=== PATIENT | male | born 1980 | race Caucasian/White ===

== ENCOUNTER 2019-01-13 18:48 | Inpatient (IN) | payer BC, OTHER ==
[2019-01-13 20:06] LABS: ABSOLUTE BASOPHILS # (AUTO) 0.1 10^3/uL (0.0-0.2); ABSOLUTE EOSINOPHILS # (AUTO) 0.2 10^3/uL (0.0-0.6); ABSOLUTE LYMPHOCYTES (AUTO) 2.2 10^3/uL (0.5-4.7); ABSOLUTE MONOCYTES (AUTO) 0.6 10^3/uL (0.1-1.4); ABSOLUTE NEUT (AUTO) 6.9 10^3/uL (1.7-8.2); BASOPHILS % (AUTO) 0.7 % (0-2); EOSINOPHILS % (AUTO) 1.9 % (0-6); HEMATOCRIT 44.3 % (37.9-51.0); HEMOGLOBIN 15.8 g/dL (13.5-17.0); LYMPHOCYTES % (AUTO) 22.4 % (13-45); MEAN CORPUSCULAR HGB CONC 35.7 g/dL (32.0-36.0); MEAN CORPUSCULAR VOLUME 92 fl (80-97); MONOCYTES % (AUTO) 5.9 % (3-13); PLATELET COUNT 214 10^3/uL (150-450); RED BLOOD COUNT 4.79 10^6/uL (4.35-5.55); SEGMENTED NEUTROPHILS % (AUTO) 69.1 % (42-78); TOTAL CELLS COUNTED % (AUTO) 100 %; WHITE BLOOD COUNT 9.9 10^3/uL (4.0-10.5)
[2019-01-13 20:13] LABS: INTERNATIONAL RATION (INR) 0.85; PROTHROMBIN TIME 12.1 SEC (11.4-15.4)
[2019-01-13 20:16] LABS: APPEARANCE,URINE CLEAR; BILIRUBIN,URINE NEGATIVE (NEGATIVE); COLOR,URINE YELLOW; GLUCOSE, URINE NEGATIVE (NEGATIVE); KETONES,URINE NEGATIVE (NEGATIVE); LEUKOCYTE ESTERASE,URINE NEGATIVE (NEGATIVE); NITRITE,URINE NEGATIVE (NEGATIVE); PROTEIN,URINE 30 mg/dL (NEGATIVE); URINE SPECIFIC GRAVITY 1.026
[2019-01-13 20:22] LABS: ALANINE AMINOTRANSFERASE 43 U/L (21-72); ALBUMIN 4.6 g/dL (3.5-5.0); ALKALINE PHOSPHATASE 95 U/L (38-126); ANION GAP 11 (5-19); ASPARTATE AMINO TRANSFERASE 27 U/L (17-59); BILIRUBIN,DIRECT 0.4 mg/dL (0.0-0.4); BILIRUBIN,TOTAL 1.4 mg/dL (0.2-1.3); BLOOD UREA NITROGEN 19 mg/dL (7-20); CALCIUM 9.6 mg/dL (8.4-10.2); CARBON DIOXIDE 28 mmol/L (22-30); CHLORIDE 103 mmol/L (98-107); GLUCOSE 93 mg/dL (75-110); POTASSIUM 3.9 mmol/L (3.6-5.0); SODIUM 141.7 mmol/L (137-145); TOTAL PROTEIN 7.9 g/dL (6.3-8.2)
--- NOTE | 2019-01-13 21:44 | RADIOLOGY REPORT (SQ) ---
EXAM DESCRIPTION: [facility]: CT HEAD WITHOUT IV CONTRAST CLINICAL HISTORY: 38 years Male; altered sensation left since 11am htn TECHNIQUE: Noncontrast CT head. All CT scans at this facility use dose modulation, iterative reconstruction, and/or weight based dosing when appropriate to reduce radiation dose to as low as reasonably achievable. COMPARISON: None. FINDINGS: [place] matter, white matter, ventricles, and cisterns are within normal limits. No acute hemorrhage or mass effect. Visualized portions of paranasal sinuses and mastoids are clear. Visualized portions of the calvarium are within normal limits. IMPRESSION: 1. No acute intracranial findings.
--- NOTE | 2019-01-14 00:53 | ER Document Report ---
ED General - General Chief Complaint: Numbness Stated Complaint: Paresthesias left side Time Seen by Provider: 01/13/19 19:03 Notes: Patient is a 38-year-old male with a past medical history of essential hypertension, hyperlipidemia, not currently receiving treatment for either of these pathologies who presents with roughly 12 hours of dizziness, ringing in his ears as well as feeling paresthesias or tingling sensation on his left half of his body. Patient states that he woke up with the symptoms and that they have been constant since that time. States he got back from vacation in [place] yesterday, felt fine upon his return but woke up with the symptoms. Nothing seems to improve or worsen the symptoms. He denies any history of similar symptoms in the past. He is clear denies any true sensory loss, difficulty walking, weakness, confusion or difficulty speaking. Denies current drug or alcohol use but does state that he had dietary indiscretions and increased alcohol consumption during his vacation. No head trauma. No use of anticoagulation. No previous history of CVA. TRAVEL OUTSIDE OF THE [place] IN LAST 30 DAYS: No - Related Data Allergies/Adverse Reactions: No Known Allergies Allergy (Unverified 02/26/11 14:12) Past Medical History - General Information source: Patient - Social History Smoking Status: Never Smoker Chew tobacco use (# tins/day): No Frequency of alcohol use: Social Drug Abuse: None Lives with: Family Family History: Reviewed & Not Pertinent Patient has suicidal ideation: No Patient has homicidal ideation: No - Past Medical History Cardiac Medical History: Reports: Hx Hypertension Denies: Hx Coronary Artery Disease, Hx Heart Attack Pulmonary Medical History: Denies: Hx Asthma, Hx Bronchitis, Hx COPD, Hx Pneumonia Neurological Medical History: Denies: Hx Cerebrovascular Accident, Hx Seizures Renal/ Medical History: Denies: Hx Peritoneal Dialysis GI Medical History: Musculoskeletal Medical History: Denies Hx Arthritis Psychiatric Medical History: Denies: Hx Depression Infectious Medical History: Past Surgical History: Reports: Hx Orthopedic Surgery - hernandez ACL surgery. Denies: Hx Pacemaker - Immunizations Hx Diphtheria, Pertussis, Tetanus Vaccination: Yes Review of Systems - Review of Systems Notes: Constitutional: Negative for fever. HENT: Negative for sore throat. Eyes: Negative for visual changes. Cardiovascular: Negative for chest pain. Positive for lightheadedness Respiratory: Negative for shortness of breath. Gastrointestinal: Negative for abdominal pain, vomiting or diarrhea. Genitourinary: Negative for dysuria. Musculoskeletal: Negative for back pain. Skin: Negative for rash. Neurological: Positive for left-sided paresthesias without true sensory loss, motor weakness, or headache 10 point ROS negative except as marked above and in HPI. Physical Exam - Vital signs Vitals: Temp Pulse Resp BP Pulse Ox 98.0 F 73 16 211/117 H 99 01/13/19 18:55 01/13/19 18:55 01/13/19 18:55 01/13/19 18:55 01/13/19 18:55 Interpretation: Hypertensive Notes: PHYSICAL EXAMINATION: GENERAL: Well-appearing, well-nourished and in no acute distress. HEAD: Atraumatic, normocephalic. EYES: Pupils equal round and reactive to light, extraocular movements intact, sclera anicteric, conjunctiva are normal. ENT: nares patent, oropharynx clear without exudates. Moist mucous membranes. NECK: Normal range of motion, supple without lymphadenopathy LUNGS: Breath sounds clear to auscultation bilaterally and equal. No wheezes rales or rhonchi. HEART: Regular rate and rhythm without murmurs ABDOMEN: Soft, nontender, normoactive bowel sounds. No guarding, no rebound. No masses appreciated. EXTREMITIES: Normal range of motion, no pitting or edema. No cyanosis. NEUROLOGICAL: Face symmetric. Tongue protrudes midline. Extraocular motions intact. Pupils are 2 mm and equally reactive. Normal speech, normal gait. 5 out of 5 strength in both the distal and proximal upper and lower extremities bilaterally. Sensation is grossly intact throughout. With patient's eyes closed he can feel very light touch with the edge of a glove throughout the entirety of his left upper extremity and left lower extremity as well as across the left face. Finger to nose testing normal. Pronator drift normal. PSYCH: Normal mood, normal affect. SKIN: Warm, Dry, normal turgor, no rashes or lesions noted. Course - Re-evaluation Re-evalutation: 01/14/19 00:10 Patient presents with paresthesias of the entirety of his left side of his body without any true sensory loss. The patient does not have any motor deficits. His NIH stroke scale is 0. He is otherwise well in appearance and in no distress of any kind. However his blood pressure is extremely elevated as high as into the 240 systolic. I was not notified of these blood pressure elevations did note this when I went to the bedside. After completing a complete an 8 stroke scale and find it to be 0 I do believe the patient has a likely hypertensive emergency that accounts for his paresthesias on the left side and I think is very improbable that he had a stroke given the distribution and lack of true sensory loss. He will be initiated on a nicardipine infusion. Will continue to reassess the patient at regular intervals at this time. Looking to determine whether or not his paresthesias do resolve with blood pressure correction. He has had his acuity upgraded, I have informed charge nurse. Will continue to reassess at regular intervals. 01/14/19 0100 On re-examination patient continues to have a natural scale of 0. He continues to state that his left side feels somewhat dulled but even with his eyes closed he can feel very light touch throughout the entirety of his left upper extremity, left lower extremity and left facial region. Nicardipine infusion has begun. 01/14/19 02:29 Patient's blood pressure has improved gradually currently 177/101. He states his paresthesias have not changed but he continues to be without any true neurol ogic deficit. NIH stroke scale remains 0. Again I think the likelihood of a stroke in the setting is low although it would be possible for this to be a small territory purely sensory infarct. I believe if his symptoms do persist in the morning MRI would be appropriate but I do not believe he requires transfer for neurology at this time as the likelihood of a proximal occlusion does not make any sense in this context given the absence of any other deficits. I have discussed with the hospitalist on-call Dr. Blanchard who accepted the patient to the ICU - Vital Signs Vital signs: Temp Pulse Resp BP Pulse Ox 98.0 F 77 18 179/94 H 95 01/13/19 18:55 01/14/19 03:18 01/14/19 03:18 01/14/19 03:18 01/14/19 03:18 - Laboratory Result Diagrams: 01/13/19 19:48 01/13/19 19:48 Laboratory results interpreted by me: 01/13/19 01/13/19 19:48 19:48 Total Bilirubin 1.4 H Urine Protein 30 H Urine Blood SMALL H Urine Urobilinogen 2.0 H - Diagnostic Test Radiology reviewed: Image reviewed, Reports reviewed Critical Care Note - Critical Care Note Total time excluding time spent on procedures (mins): 35 Comments: Critical care time spent obtaining history from patient or surrogate, discussions with consultants, development of treatment plan with patient or surrogate, evaluation of patient's response to treatment, examination of patient, ordering and performing treatments and interventions, ordering and rev iew of laboratory studies, re-evaluation of patient's condition, ordering and review of radiographic studies and review of old charts Discharge - Discharge Clinical Impression: Hypertensive emergency, Paresthesias, Lightheadedness Condition: Fair Disposition: ADMITTED INPATIENT Admitting Provider: Santo (Hospitalist) Unit Admitted: ICU
[2019-01-14] MEDS: NICARDIPINE HCL RTU, ISO-OS 20 MG/200 ML RTUINJ IV PRN ×3 (01:15→04:50)
[2019-01-14] MEDS ORDERED: ASPIRIN 81 MG TABLET, CHEWABLE PO ONE (02:28)
[2019-01-14] MEDS ORDERED: TEMAZEPAM 15 MG CAPSULE PO PRN (03:04)
[2019-01-14] MEDS ORDERED: MAG HYDROX/AL HYDROX/SIMETH SUSP 30 ML UDCUP PO PRN (03:04)
[2019-01-14] MEDS ORDERED: MAGNESIUM HYDROXIDE SUSP 30 ML UDCUP PO PRN (03:04)
[2019-01-14] MEDS ORDERED: ONDANSETRON HCL INJ/PF 4 MG/2 ML SDV IV PRN (03:04)
[2019-01-14] MEDS ORDERED: ACETAMINOPHEN 325 MG TABLET PO PRN (03:09)
[2019-01-14] MEDS ORDERED: NICARDIPINE HCL RTU, ISO-OS 20 MG/200 ML RTUINJ IV PRN (03:49)
[2019-01-14] MEDS: LORAZEPAM INJ 2 MG/1 ML VIAL IV PRN ×2 (04:11→23:23)
--- NOTE | 2019-01-14 05:44 | PDOC H&P ---
History of Present Illness Admission Date/PCP: 01/14/2019 Patient complains of: Tingling of the left side History of Present Illness: NICOLASA SOTO is a 38 year old male who presented to the emergency room with the sudden onset of paresthesias of the entire left side of his body. Patient [place] cates that he suddenly developed a moderate numbness and tingling sensation in his left arm earlier today and it gradually increased in intensity to moderately severe and grew to affect his entire left side including the torso, face and extremities. These paresthesias have been present since first noted last evening and have not resolved. Patient has additional symptoms of a low-grade frontal/retro-orbital headache, mild bilateral ear fullness and mild grogginess. He denies prior similar episodes and has not identified any aggravating or ameliorating factors for his paresthesias. In the emergency room he was found to be severely hypertensive with blood pressures of greater than 230/130 noted. He was subsequently placed on nicardipine infusion and his blood pressure was controlled however his paresthesias persisted. Because of his hypertensive emergency he will be admitted to the intensive care unit for further evaluation and treatment. Past Medical History Cardiac Medical History: Reports: Hypertension - Stopped taking medications about 5 years ago Denies: Coronary Artery Disease, Myocardial Infarction, Hyperlipidema Pulmonary Medical History: Denies: Asthma, Bronchitis, Chronic Obstructive Pulmonary Disease (COPD), Pneumonia EENT Medical History: Denies: Cataracts Neurological Medical History: Denies: Hemorrhagic CVA, Ischemic CVA, Seizures Endocrine Medical History: Denies: Diabetes Mellitus Type 1, Diabetes Mellitus Type 2, Hyperthyroidism, Hypothyroidism Renal/ Medical History: Denies: Chronic Kidney Disease, Nephrolithiasis Malignancy Medical History: Reports: None GI Medical History: Denies: Cirrhosis Musculoskeltal Medical History: Denies: Arthritis, Gout Skin Medical History: Denies: Eczema, Psoriasis Psychiatric Medical History: Denies: Alcohol Dependency, Depression, Substance Abuse, Tobacco Dependency Traumatic Medical History: Reports: None Hematology: Denies: Anemia, Bleeding Tendencies Infectious Medical History: Reports: None Past Surgical History Past Surgical History: Reports: Orthopedic Surgery - hernandez ACL surgery Social History Information Source: Patient Lives with: Spouse/Significant other Smoking Status: Never Smoker Frequency of Alcohol Use: Occasional Hx Recreational Drug Use: No Drugs: None Hx Prescription Drug Abuse: No - Advance Directive Resuscitation Status: Full Code Surrogate healthcare decision maker:: Spouse Family History Family History: CAD, Hypertension. denies: DM, Malignancy Parental Family History Reviewed: Yes Children Family History Reviewed: No Sibling(s) Family History Reviewed.: Yes Medication/Allergy Home Medications: Lisinopril [Prinivil 10 mg Tablet] 10 mg PO DAILY #0 tablet 06/22/14 Metoprolol Tartrate [Lopressor 25 mg Tablet] 12.5 mg PO Q12 06/22/14 Simvastatin 20 mg PO QHS 06/22/14 Allergies/Adverse Reactions: No Known Allergies Allergy (Unverified 02/26/11 14:12) Review of Systems Constitutional: PRESENT: as per HPI, headache(s). ABSENT: chills, fever(s) Eyes: ABSENT: visual disturbances, other - Eye pain Ears: PRESENT: hearing changes - Bilateral ear fullness with slightly dull/muted hearing. ABSENT: other - Ear Pain Nose, Mouth, and Throat: ABSENT: mouth pain, sore throat Cardiovascular: ABSENT: chest pain, dyspnea on exertion, edema, orthropnea, palpitations Respiratory: ABSENT: cough, dyspnea Gastrointestinal: ABSENT: abdominal pain, constipation, diarrhea, dysphagia, nausea, vomiting Genitourinary: ABSENT: dysuria, hematuria Musculoskeletal: ABSENT: back pain, joint swelling, muscle weakness Integumentary: ABSENT: pruritus, rash Neurological: PRESENT: as per HPI, numbness, paresthesias, tingling. ABSENT: confusion, convulsions, focal weakness, memory loss, syncope Psychiatric: ABSENT: anxiety, depression Endocrine: ABSENT: cold intolerance, heat intolerance Hematologic/Lymphatic: ABSENT: easy bleeding, easy bruising Physical Exam Vital Signs: Temp Pulse Resp BP Pulse Ox 98.0 F 77 14 171/96 H 94 01/13/19 18:55 01/13/19 22:00 01/14/19 02:21 01/14/19 02:21 01/14/19 02:21 Intake & Output 01/12/19 01/13/19 01/14/19 23:59 23:59 23:59 Intake Total 98 Balance 98 Weight 114.7 kg General appearance: PRESENT: no acute distress, cooperative Head exam: PRESENT: atraumatic, normocephalic Eye exam: ABSENT: conjunctival injection, nystagmus, scleral icterus Ear exam: PRESENT: normal external ear exam. ABSENT: bleeding, drainage Mouth exam: PRESENT: dry mucosa, neck supple Neck exam: ABSENT: thyromegaly, tracheal deviation Respiratory exam: PRESENT: clear to auscultation hernandez, symmetrical, unlabored Cardiovascular exam: PRESENT: RRR. ABSENT: clicks, gallop, rubs Pulses: PRESENT: normal radial pulses, normal dorsalis pedis pul Vascular exam: PRESENT: normal capillary refill. ABSENT: pallor GI/Abdominal exam: PRESENT: normal bowel sounds, soft Rectal exam: PRESENT: deferred Extremities exam: ABSENT: joint swelling, pedal edema Musculoskeletal exam: PRESENT: full ROM, normal inspection Neurological exam: PRESENT: alert, awake, oriented to person, oriented to place, oriented to time, oriented to situation, CN II-XII grossly intact. ABSENT: motor sensory deficit Psychiatric exam: PRESENT: appropriate affect, normal mood Skin exam: PRESENT: dry, intact, warm. ABSENT: jaundice, rash, urticaria Results Laboratory Results: 01/13/19 19:48 01/13/19 19:48 01/13/19 01/13/19 01/13/19 19:48 19:48 19:48 WBC 9.9 RBC 4.79 Hgb 15.8 Hct 44.3 MCV 92 MCH 33.0 MCHC 35.7 RDW 13.0 Plt Count 214 Seg Neutrophils % 69.1 Lymphocytes % 22.4 Monocytes % 5.9 Eosinophils % 1.9 Basophils % 0.7 Absolute Neutrophils 6.9 Absolute Lymphocytes 2.2 Absolute Monocytes 0.6 Absolute Eosinophils 0.2 Absolute Basophils 0.1 Sodium 141.7 Potassium 3.9 Chloride 103 Carbon Dioxide 28 Anion Gap 11 BUN 19 Creatinine 0.95 Est GFR ( Amer) > 60 Est GFR (Non-Af Amer) > 60 Glucose 93 Calcium 9.6 Total Bilirubin 1.4 H AST 27 ALT 43 Alkaline Phosphatase 95 Total Protein 7.9 Albumin 4.6 Urine Color YELLOW Urine Appearance CLEAR Urine pH 6.0 Ur Specific [place] 1.026 Urine Protein 30 H Urine Glucose (UA) NEGATIVE Urine Ketones NEGATIVE Urine Blood SMALL H Urine Nitrite NEGATIVE Ur Leukocyte Esterase NEGATIVE Urine WBC (Auto) 1 Urine RBC (Auto) 6 Impressions: Head CT 01/13/19 19:04 IMPRESSION: 1. No acute intracranial findings. Assessment and Plan - Diagnosis (1) Hypertensive emergency Is this a current diagnosis for this admission?: Yes Plan: Patient will be admitted to the ICU where he will be continued on a nicardipine drip until he can be converted to oral antihypertensive agents with no further requirement for intravenous antihypertensive therapy. He will be monitored closely throughout his therapy and his CBC metabolic profile will be monitored carefully. An echocardiogram will be obtained to evaluate cardiac effects of his long-term uncontrolled hypertension. (2) Paresthesias Is this a current diagnosis for this admission?: Yes Plan: Patient's paresthesias will be addressed with symptomatic treatment for any problems at remain after his blood pressure has been controlled. Consider a possible MRI if symptoms persist or neurologic referral. Patient will be given Ativan 1 mg IV every 4 hours as needed for anxiety or control of paresthesias symptoms. (3) Ear fullness Qualifiers: Laterality: bilateral Qualified Code(s): H93.8X3 - Other specified disorders of ear, bilateral Is this a current diagnosis for this admission?: Yes Plan: Patient's ear fullness will be addressed with symptomatic and supportive cares. If his symptoms are not resolving after his blood pressure has been well controlled and he has been able to achieve appropriate rest an ENT consultation may be in order. (4) Fatigue Qualifiers: Fatigue type: unspecified Qualified Code(s): R53.83 - Other fatigue Is this a current diagnosis for this admission?: Yes Plan: Patient's fatigue will be addressed with by him to get adequate sleep and other supportive as well as symptomatic cares. If his fatigue does not resolve after control of his blood pressure and appropriate mild sleep it would be very likely that a cardiology consultation would be in order. An echocardiogram is being obtained. - Time Time Spent with patient: 25-34 minutes Anticipated discharge: Home - Inpatient Certification Based on my medical assessment, after consideration of the patient's comorbidities, presenting symptoms, or acuity I expect that the services needed warrant INPATIENT care.: Yes I certify that my determination is in accordance with my understanding of Medicare's requirements for reasonable and necessary INPATIENT services [42 CFR 412.3e].: Yes Medical Necessity: Need Close Monitoring Due to Risk of Patient Decompensation, Need For Continuous Telemetry Monitoring, Need for Neurological Checks, Risk of Complication if Not Cared For in Hospital
[2019-01-14] MEDS: FONDAPARINUX SODIUM INJ 2.5 MG/0.5 ML DISP.SYRIN SUBCUT SCH (08:57)
--- NOTE | 2019-01-14 10:05 | PDOC PROGRESS REPORT ---
Subjective Progress Note for:: 01/14/19 Subjective:: As noted in the history and physical the patient stopped taking ant ihypertensives a proximally 5-6 years ago. He presented with marked hypertension. He was on a Cardene drip which he has tapered off of. He still has some left-sided paresthesia but full motor function. Reason For Visit: HYPERTENSIVE CRISIS Physical Exam Vital Signs: Temp Pulse Resp BP Pulse Ox 97.9 F 75 13 139/86 H 97 01/14/19 08:00 01/14/19 08:54 01/14/19 08:00 01/14/19 08:00 01/14/19 08:00 Intake & Output 01/13/19 01/14/19 01/15/19 06:59 06:59 06:59 Intake Total 510 Output Total 200 Balance 310 Weight 116.4 kg General appearance: PRESENT: no acute distress, cooperative, obese - BMI 35.8, well-developed Head exam: PRESENT: atraumatic, normocephalic Eye exam: PRESENT: conjunctiva pink. ABSENT: scleral icterus Ear exam: PRESENT: normal external ear exam Mouth exam: PRESENT: moist, tongue midline Neck exam: ABSENT: carotid bruit, JVD, lymphadenopathy Respiratory exam: PRESENT: clear to auscultation hernandez, symmetrical, unlabored. ABSENT: accessory muscle use, rales, rhonchi, tachypnea, wheezes Cardiovascular exam: PRESENT: RRR, +S1, +S2, systolic murmur - 2/6 GI/Abdominal exam: PRESENT: normal bowel sounds, soft. ABSENT: distended, tenderness Rectal exam: PRESENT: deferred Gentrourinary exam: ABSENT: indwelling catheter Extremities exam: ABSENT: pedal edema Musculoskeletal exam: PRESENT: normal inspection, other - Normal and symmetric bass [place] strength as well as plantar flexion and dorsiflexion. Normal straight leg raise. Could not elicit either patellar reflex. Neurological exam: PRESENT: alert, awake, oriented to person, oriented to place, oriented to time, oriented to situation, CN II-XII grossly intact, motor sensory deficit - The patient still has slightly altered touch sensation on the left arm and leg. It feels as if you are touching his extremity through a sleeve or layer of material. Psychiatric exam: PRESENT: appropriate affect, flat affect. ABSENT: agitated, anxious, unusual affect Focused psych exam: ABSENT: delusional, restlessness Results Laboratory Results: 01/13/19 19:48 01/13/19 19:48 01/13/19 01/13/19 01/13/19 19:48 19:48 19:48 WBC 9.9 RBC 4.79 Hgb 15.8 Hct 44.3 MCV 92 MCH 33.0 MCHC 35.7 RDW 13.0 Plt Count 214 Seg Neutrophils % 69.1 Lymphocytes % 22.4 Monocytes % 5.9 Eosinophils % 1.9 Basophils % 0.7 Absolute Neutrophils 6.9 Absolute Lymphocytes 2.2 Absolute Monocytes 0.6 Absolute Eosinophils 0.2 Absolute Basophils 0.1 Sodium 141.7 Potassium 3.9 Chloride 103 Carbon Dioxide 28 Anion Gap 11 BUN 19 Creatinine 0.95 Est GFR ( Amer) > 60 Est GFR (Non-Af Amer) > 60 Glucose 93 Calcium 9.6 Total Bilirubin 1.4 H AST 27 ALT 43 Alkaline Phosphatase 95 Total Protein 7.9 Albumin 4.6 Urine Color YELLOW Urine Appearance CLEAR Urine pH 6.0 Ur Specific [place] 1.026 Urine Protein 30 H Urine Glucose (UA) NEGATIVE Urine Ketones NEGATIVE Urine Blood SMALL H Urine Nitrite NEGATIVE Ur Leukocyte Esterase NEGATIVE Urine WBC (Auto) 1 Urine RBC (Auto) 6 Impressions: Head CT 01/13/19 19:04 IMPRESSION: 1. No acute intracranial findings. Assessment and Plan - Diagnosis (1) Hypertensive emergency Is this a current diagnosis for this admission?: Yes Plan: Patient will be admitted to the ICU where he will be continued on a nicardipine drip until he can be converted to oral antihypertensive agents with no further requirement for intravenous antihypertensive therapy. He will be monitored closely throughout his therapy and his CBC metabolic profile will be monitored carefully. An echocardiogram will be obtained to evaluate cardiac effects of hi s long-term uncontrolled hypertension. 01/14/2019-the patient is certainly feeling better this morning. He is off of the Cardene drip. He is tolerating his metoprolol succinate 200 mg twice daily and lisinopril 10 mg twice daily. We will be able to downgrade to IMCU. (2) Paresthesias Is this a current diagnosis for this admission?: Yes Plan: Patient's paresthesias will be addressed with symptomatic treatment for any problems at remain after his blood pressure has been controlled. Consider a possible MRI if symptoms persist or neurologic referral. Patient will be given Ativan 1 mg IV every 4 hours as needed for anxiety or control of paresthesias symptoms. 01/14/2019-still with some paresthesias. Because of his marked hypertension I will obtain an MRI to rule out stroke. There is no evidence of bleed on CT scan so I will start aspirin therapy daily. (3) Ear fullness Qualifiers: Laterality: bilateral Qualified Code(s): H93.8X3 - Other specified disorders of ear, bilateral Is this a current diagnosis for this admission?: Yes Plan: Patient's ear fullness will be addressed with symptomatic and supportive cares. If his symptoms are not resolving after his blood pressure has been well c ontrolled and he has been able to achieve appropriate rest an ENT consultation may be in order. 01/14/2019-he reports that his symptoms are improved. Likely due to his hypertensive emergency. Continue to monitor. Hearing is intact this morning. (4) Fatigue Qualifiers: Fatigue type: unspecified Qualified Code(s): R53.83 - Other fatigue Is this a current diagnosis for this admission?: Yes Plan: Patient's fatigue will be addressed with by him to get adequate sleep and other supportive as well as symptomatic cares. If his fatigue does not resolve after control of his blood pressure and appropriate mild sleep it would be very likely that a cardiology consultation would be in order. An echocardiogram is being obtained. 01/14/2019-improved this morning. Can better assess when he is ambulatory. (5) Obesity (BMI 30-39.9) Is this a current diagnosis for this admission?: Yes Plan: 01/14/2019-with his hypertension/cardiac risk factors the patient would benefit from weight loss and regular exercise. We will encourage low-salt low-fat diet. Lipid panel and thyroid studies are pending. - Time Time Spent with patient: 25-34 minutes Medications reviewed and adjusted accordingly: Yes Anticipated discharge: Home
[2019-01-14] MEDS: METOPROLOL SUCCINATE 50 MG TAB.SR.24H PO SCH ×2 (10:38→21:28)
[2019-01-14] MEDS: DOCUSATE SODIUM 100 MG CAPSULE PO SCH ×2 (10:38→17:39)
[2019-01-14] MEDS: LISINOPRIL 10 MG TABLET PO SCH ×2 (10:38→21:28)
[2019-01-14] MEDS: FAMOTIDINE 20 MG TABLET PO SCH ×2 (10:39→21:28)
--- NOTE | 2019-01-14 14:55 | RADIOLOGY REPORT (SQ) ---
EXAM DESCRIPTION: MRI HEAD WITHOUT COMPLETED DATE/TIME: 01/14/2019 2:31 pm REASON FOR STUDY: Paresthesias left side with hypertensive urgency COMPARISON: CT dated 01/13/2019. TECHNIQUE: Multiplanar imaging includes non-contrasted T1, T2, FLAIR, and diffusion with ADC map seq uences. Images stored on PACS. LIMITATIONS: None. FINDINGS: ANATOMY: No anomalies. Normal vascular flow voids. Pituitary fossa normal. CSF SPACES: Normal in size and contour. No hemorrhage. CEREBRUM: Sulci and gyri normal in size and contour. Normal white matter signal on FLAIR imaging. No evidence of hemorrhage, mass, or extraaxial fluid collection. POSTERIOR FOSSA: No signal alteration. No hemorrhage. No edema, masses or mass effect. Internal amy tory canals, cerebello-pontine angles, mastoids normal. DIFFUSION IMAGING: There is a focal area of restricted diffusion in the posterior right side of the b rainstem at the right middle cerebellar peduncle (image number 9 on series number 5 and series number 500). ORBITS: No masses. Globes normal. PARANASAL SINUSES: No fluid levels. Mucosa normal. OTHER: No other significant finding. IMPRESSION: FOCAL AREA OF RESTRICTED DIFFUSION IN THE POSTERIOR RIGHT BRAIN STEM AT THE RIGHT MIDDLE CEREBELLAR PEDUNCLE, CONSISTENT WITH A SMALL ACUTE INFARCT. EVIDENCE OF ACUTE STROKE: NO. COMMENT: Pertinent findings on the imaging study reported as a CRITICAL RESULT to the ICU nurse at1 4:48 on 01/14/2019. Category of Critical Result: Acute infarct. TECHNICAL DOCUMENTATION: JOB ID: [id number] [employer]- All Rights Reserved Reading location - IP/workstation name: [email or web address]
--- NOTE | 2019-01-14 15:25 | Progress Note ---
Provider Note Provider Note: Addendum: The MRI obtained today revealed a small acute infarct in the right brainstem. We will continue aggressive blood pressure control and the patient has been started on aspirin and statin therapy.
[2019-01-14] MEDS: ASPIRIN 81 MG TABLET, ENT COATED PO SCH (21:31)
[2019-01-14] MEDS ORDERED: ATORVASTATIN CALCIUM 40 MG TABLET PO SCH (22:00)
[2019-01-15 03:51] LABS: HEMATOCRIT 40.6 % (37.9-51.0); HEMOGLOBIN 14.4 g/dL (13.5-17.0); MEAN CORPUSCULAR HGB CONC 35.4 g/dL (32.0-36.0); MEAN CORPUSCULAR VOLUME 93 fl (80-97); PLATELET COUNT 191 10^3/uL (150-450); RED BLOOD COUNT 4.35 10^6/uL (4.35-5.55); RED CELL DISTRIBUTION WIDTH 13.3 % (11.5-14.0); WHITE BLOOD COUNT 10.3 10^3/uL (4.0-10.5)
[2019-01-15 04:09] LABS: ANION GAP 7 (5-19); BLOOD UREA NITROGEN 19 mg/dL (7-20); CALCIUM 9.8 mg/dL (8.4-10.2); CARBON DIOXIDE 26 mmol/L (22-30); CHLORIDE 107 mmol/L (98-107); CHOLESTEROL 232.02 mg/dL (0-200); GLUCOSE 99 mg/dL (75-110); SODIUM 139.8 mmol/L (137-145); TRIGLYCERIDES 179 mg/dL (<150)
[2019-01-15 04:20] LABS: DIRECT LDL 149 mg/dL (<100)
[2019-01-15 04:22] LABS: VLDL CHOLESTEROL 35.8 mg/dL (10-31)
[2019-01-15 04:26] LABS: FREE T3 4.12 pg/mL (2.77-5.27); FREE T4 (FREE THYROXINE) 1.17 ng/dL (0.78-2.19)
[2019-01-15 04:39] LABS: THYROID STIMULATING HORMONE 3.63 uIU/mL (0.47-4.68)
[2019-01-15] MEDS: DOCUSATE SODIUM 100 MG CAPSULE PO SCH ×3 (11:15→18:45)
[2019-01-15] MEDS: FONDAPARINUX SODIUM INJ 2.5 MG/0.5 ML DISP.SYRIN SUBCUT SCH (11:15)
[2019-01-15] MEDS: METOPROLOL SUCCINATE 50 MG TAB.SR.24H PO SCH ×2 (11:16→22:33)
[2019-01-15] MEDS: LISINOPRIL 10 MG TABLET PO SCH ×2 (11:17→22:32)
[2019-01-15] MEDS: FAMOTIDINE 20 MG TABLET PO SCH ×2 (11:18→22:32)
--- NOTE | 2019-01-15 15:12 | PDOC PROGRESS REPORT ---
Subjective Progress Note for:: 01/15/19 Subjective:: Still has residual numbness in the left arm and left leg. Left arm is almost resolved. There is a funny sensation in the left hand but he states that he has normal motor function. Left leg has some numb areas including the left inner thigh. He did work with physical therapy and tells me that he is somewhat tentative with the left leg but does not report that there was muscle failure or collapse of the leg from weakness. It might be just sensation related. Reason For Visit: HYPERTENSIVE CRISIS Physical Exam Vital Signs: Temp Pulse Resp BP Pulse Ox 98.0 F 68 12 166/105 H 96 01/15/19 08:00 01/15/19 08:00 01/15/19 08:00 01/15/19 09:45 01/15/19 09:00 Intake & Output 01/14/19 01/15/19 01/16/19 06:59 06:59 06:59 Intake Total 510 360 Output Total 200 Balance 310 360 Weight 116.4 kg 115.7 kg General appearance: PRESENT: no acute distress, cooperative, obese, well- developed Head exam: PRESENT: atraumatic, normocephalic Eye exam: PRESENT: conjunctiva pink, nystagmus - Bilateral. ABSENT: scleral icterus Ear exam: PRESENT: normal external ear exam Mouth exam: PRESENT: moist, tongue midline Teeth exam: ABSENT: poor dentation Neck exam: PRESENT: full ROM. ABSENT: carotid bruit, JVD, lymphadenopathy Respiratory exam: PRESENT: clear to auscultation hernandez, symmetrical, unlabored. ABSENT: accessory muscle use, rales, rhonchi, tachypnea, wheezes Cardiovascular exam: PRESENT: RRR, +S1, +S2, systolic murmur - 1/6 faint at left sternal border GI/Abdominal exam: PRESENT: normal bowel sounds, soft. ABSENT: distended, tenderness Rectal exam: PRESENT: deferred Gentrourinary exam: ABSENT: indwelling catheter Extremities exam: ABSENT: calf tenderness, pedal edema Musculoskeletal exam: PRESENT: ambulatory, normal inspection Neurological exam: PRESENT: alert, awake, oriented to person, oriented to place, oriented to time, oriented to situation, CN II-XII grossly intact, motor sensory deficit - Still with slightly decreased sensation left leg and arm. Novel[employer] As[employer] strength, dorsi and plantar flexion all symmetric and normal.. ABSENT: reflexes normal - Slight asymmetry with patellar reflexes. Right is 2+ left is 1+. Psychiatric exam: PRESENT: appropriate affect, normal mood. ABSENT: agitated, anxious Focused psych exam: ABSENT: delusional, restlessness Skin exam: PRESENT: dry, warm. ABSENT: rash Results Laboratory Results: 01/15/19 03:42 01/15/19 03:42 01/15/19 01/15/19 01/15/19 03:42 03:42 03:42 WBC 10.3 RBC 4.35 Hgb 14.4 Hct 40.6 MCV 93 MCH 33.0 MCHC 35.4 RDW 13.3 Plt Count 191 Sodium 139.8 Potassium 4.0 Chloride 107 Carbon Dioxide 26 Anion Gap 7 BUN 19 Creatinine 1.04 Est GFR ( Amer) > 60 Est GFR (Non-Af Amer) > 60 Glucose 99 Calcium 9.8 Magnesium 2.2 Triglycerides 179 H Cholesterol 232.02 H LDL Cholesterol Direct 149 H VLDL Cholesterol 35.8 H HDL Cholesterol 40 TSH 3.63 Free T4 1.17 Free T3 pg/mL 4.12 Impressions: Head CT 01/13/19 19:04 IMPRESSION: 1. No acute intracranial findings. Head MRI 01/14/19 00:00 IMPRESSION: FOCAL AREA OF RESTRICTED DIFFUSION IN THE POSTERIOR RIGHT BRAIN STEM AT THE RIGHT MIDDLE CEREBELLAR PEDUNCLE, CONSISTENT WITH A SMALL ACUTE INFA RCT. EVIDENCE OF ACUTE STROKE: NO. Assessment and Plan - Diagnosis (1) Hypertensive emergency Is this a current diagnosis for this admission?: Yes Plan: Patient will be admitted to the ICU where he will be continued on a nicardipine drip until he can be converted to oral antihypertensive agents with no further requirement for intravenous antihypertensive therapy. He will be monitored closely throughout his therapy and his CBC metabolic profile will be monitored carefully. An echocardiogram will be obtained to evaluate cardiac effects of his long-term uncontrolled hypertension. 01/14/2019-the patient is certainly feeling better this morning. He is off of the Cardene drip. He is tolerating his metoprolol succinate 200 mg twice daily and lisinopril 10 mg twice daily. We will be able to downgrade to IMCU. 01/15/2019-the patient's blood pressures are slightly higher today. He was informed that he did in fact have a small right brainstem infarct. We also discussed the fact that antihypertensive medications can take a week or 2 to mature to full effect. Because of his heightened hypertensive urgency at admission I would like to keep his systolic blood pressure in the 130-150 range and the diastolic blood pressure less than 100. I have added 12.5 mg of hydrochlorothiazide every 12 hours to pair with the lisinopril. If this is effective he will be able to transition to lisinopril/hydrochlorothiazide combination pill after discharge. We will continue to monitor blood pressure and adjust medications accordingly. (2) Paresthesias Is this a current diagnosis for this admission?: Yes Plan: Patient's paresthesias will be addressed with symptomatic treatment for any problems at remain after his blood pressure has been controlled. Consider a possible MRI if symptoms persist or neurologic referral. Patient will be given Ativan 1 mg IV every 4 hours as needed for anxiety or control of paresthesias symptoms. 01/14/2019-still with some paresthesias. Because of his marked hypertension I will obtain an MRI to rule out stroke. There is no evidence of bleed on CT scan so I will start aspirin therapy daily. 01/15/2019-she did work with physical therapy. He reports that he still has some dullness to touch on the leg and less so on the arm. The inner left thigh is the area most affected. He was walking with physical therapy earlier. He felt some instability. It may have been related more to sensation and proprioception than actual weakness. With good blood pressure control and on antiplatelet and statin therapy it is hoped that these issues were resolved. I reinforced that having normal motor function is somewhat more important than sensation. (3) Ear fullness Qualifiers: Laterality: bilateral Qualified Code(s): H93.8X3 - Other specified disorders of ear, bilateral Is this a current diagnosis for this admission?: Yes Plan: Patient's ear fullness will be addressed with symptomatic and supportive cares. If his symptoms are not resolving after his blood pressure has been well controlled and he has been able to achieve appropriate rest an ENT consultation may be in order. 01/14/2019-he reports that his symptoms are improved. Likely due to his hy pertensive emergency. Continue to monitor. Hearing is intact this morning. 01/15/2019-resolved (4) Fatigue Qualifiers: Fatigue type: unspecified Qualified Code(s): R53.83 - Other fatigue Is this a current diagnosis for this admission?: Yes Plan: Patient's fatigue will be addressed with by him to get adequate sleep and other supportive as well as symptomatic cares. If his fatigue does not resolve after control of his blood pressure and appropriate mild sleep it would be very likely that a cardiology consultation would be in order. An echocardiogram is being obtained. 01/14/2019-improved this morning. Can better assess when he is ambulatory. 01/15/2019-there is likely fatigue will remain after discharge. I explained to the patient that he will be referred to outpatient physical therapy. He also should start an exercise program for general health purposes. (5) Obesity (BMI 30-39.9) Is this a current diagnosis for this admission?: Yes Plan: 01/14/2019-with his hypertension/cardiac risk factors the patient would benefit from weight loss and regular exercise. We will encourage low-salt low-fat diet. Lipid panel and thyroid studies are pending. 01/15/2019-the patient was found to have an ischemic right brainstem stroke. He also has marked hypercholesterolemia with hypertriglyceridemia. There is a family history of heart disease. I explained that it is imperative for multiple reasons to engage in a regular exercise program with cardiac diet to decrease his risk factors. (6) Hypercholesterolemia with hypertriglyceridemia Is this a current diagnosis for this admission?: Yes Plan: 01/15/2019-I did provide the patient with a copy of his blood work. His total cholesterol level was 232 with an LDL of 149 and an HDL of 40. Triglycerides were 179. I informed him that I increased his atorvastatin to 80 mg daily. I explained that a good exercise regimen and low-fat diet would help as well. [place]-[employer] fish oils have been used consistently in the past but there is some controversy. 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 (7) Acute ischemic VBA brainstem stroke Qualifiers: Laterality: right Qualified Code(s): I63.211 - Cerebral infarction due to unspecified occlusion or stenosis of right vertebral artery; I63.22 - Cerebral infarction due to unspecified occlusion or stenosis of basilar artery Is this a current diagnosis for this admission?: Yes Plan: 01/15/2019-the patient had his MRI study yesterday. He was found to have a right brainstem infarct. Physical and occupational therapies were ordered. He worked with physical therapy today and did well. He had some unsteadiness going down stairs per his report. I explained that he would likely benefit from outpatient physical therapy after discharge. He should then engage in a regular exercise program. It is critical that he maintain good blood pressure control, aggressively treat his lipids and remain on antiplatelet therapy. He was in an airplane for 8 hours prior to the stroke. There was no evidence of deep venous thrombosis. This was only cause a stroke if there was a communication between the right and left sides of the heart. Not explain that it is more likely related to atherosclerosis or platelet accumulation. We will obtain a carotid ultrasound. We discussed outpatient follow-up. Because of his high risk factors he might benefit from seeing cardiology as well as reestablishing with primary care. Stroke education was provided for the patient as well. - Time Time Spent with patient: 35 or more minutes Medications reviewed and adjusted accordingly: Yes Anticipated discharge: Home
--- NOTE | 2019-01-15 19:40 | RADIOLOGY REPORT (SQ) ---
EXAM DESCRIPTION: CAROTID DOPPLER COMPLETED DATE/TIME: 01/15/2019 7:30 pm REASON FOR STUDY: stroke COMPARISON: None. TECHNIQUE: Grayscale ultrasound, Doppler velocity and spectra, and color Doppler images acquired of the extra-cranial carotid and vertebral arteries. Images stored on PACS. LIMITATIONS: None. FINDINGS: RIGHT CAROTID CCA Velocities: Within normal limits. ICA Velocities Peak systolic 0.77 m/s. End diastolic 0.39 m/s. Proximal ICA/CCA peak systolic ratio 1.20. Spectra normal. No significant plaque. LEFT CAROTID CCA Velocities: Within normal limits. ICA Velocities Peak systolic 0.65 m/s. End diastolic 0.31 m/s. Proximal ICA/CCA peak systolic ratio 0.7. Spectra normal. No significant plaque. VERTEBRAL ARTERIES: Antegrade flow. Normal waveforms. SUBCLAVIAN ARTERIES: No finding. OTHER: No other significant finding. IMPRESSION: NO HEMODYNAMICALLY SIGNIFICANT STENOSIS. COMMENT: Quality ID #[id number]: Velocity criteria are extrapolated from the diameter data as defined by t he Society of Radiologists in Ultrasound Consensus Conference. Radiology 2003: 229; 340-346. TECHNICAL DOCUMENTATION: JOB ID: [id number] [employer]- All Rights Reserved Reading location - IP/workstation name: [email or web address]
[2019-01-15] MEDS: ATORVASTATIN CALCIUM 80 MG TABLET PO SCH (22:30)
[2019-01-15] MEDS: ASPIRIN 81 MG TABLET, ENT COATED PO SCH (22:31)
[2019-01-15] MEDS: HYDROCHLOROTHIAZIDE 12.5 MG TABLET PO SCH (22:32)
[2019-01-15] MEDS: LORAZEPAM INJ 2 MG/1 ML VIAL IV PRN (23:35)
[2019-01-16 04:35] LABS: HEMATOCRIT 38.4 % (37.9-51.0); HEMOGLOBIN 13.8 g/dL (13.5-17.0); MEAN CORPUSCULAR HEMOGLOBIN 33.4 pg (27.0-33.4); MEAN CORPUSCULAR VOLUME 93 fl (80-97); PLATELET COUNT 172 10^3/uL (150-450); RED BLOOD COUNT 4.13 10^6/uL (4.35-5.55); RED CELL DISTRIBUTION WIDTH 12.8 % (11.5-14.0); WHITE BLOOD COUNT 10.9 10^3/uL (4.0-10.5)
[2019-01-16 04:57] LABS: ANION GAP 10 (5-19); BLOOD UREA NITROGEN 20 mg/dL (7-20); CALCIUM 9.6 mg/dL (8.4-10.2); CARBON DIOXIDE 26 mmol/L (22-30); CHLORIDE 103 mmol/L (98-107); GLUCOSE 87 mg/dL (75-110); POTASSIUM 4.3 mmol/L (3.6-5.0); SODIUM 139.3 mmol/L (137-145)
[2019-01-16] MEDS: METOPROLOL SUCCINATE 50 MG TAB.SR.24H PO SCH ×3 (10:45→21:41)
[2019-01-16] MEDS: DOCUSATE SODIUM 100 MG CAPSULE PO SCH ×2 (11:00→18:19)
[2019-01-16] MEDS: LISINOPRIL 10 MG TABLET PO SCH ×2 (11:01→21:41)
[2019-01-16] MEDS: AMLODIPINE BESYLATE 5 MG TABLET PO SCH (11:03)
[2019-01-16] MEDS: HYDROCHLOROTHIAZIDE 12.5 MG TABLET PO SCH ×2 (11:03→21:41)
[2019-01-16] MEDS: FAMOTIDINE 20 MG TABLET PO SCH ×2 (11:03→21:41)
--- NOTE | 2019-01-16 11:55 | PDOC PROGRESS REPORT ---
Subjective Progress Note for:: 01/16/19 Subjective:: Seen at ICU. Still with left arm numbness, but improving. Also labs leg numbness history of present by ultrasound improvement. Denies chest pain or shortness of breath or palpitations. No fever or chills. Working with physical therapy. Reason For Visit: HYPERTENSIVE CRISIS Physical Exam Vital Signs: Temp Pulse Resp BP Pulse Ox 98.5 F 60 12 176/112 H 98 01/16/19 04:00 01/16/19 08:06 01/15/19 16:00 01/16/19 09:23 01/16/19 10:00 Intake & Output 01/15/19 01/16/19 01/17/19 06:59 06:59 06:59 Intake Total 360 600 Balance 360 600 Weight 115.7 kg 116.4 kg GENERAL: Well-developed, no acute distress HEENT: Normocephalic/atraumatic NECK supple, no JVD CARDIOVASCULAR: RRR, normal S1-S2 LUNGS: CTA bilaterally ABDOMEN: Soft, NT, NL bowel sounds EXTREMITIES: No edema, clubbing, cyanosis NEUROLOGICAL: Alert, oriented x 3, resting with slight decreased sensation left mandible neck. Strength is 5/5 all 4 extremities. Results Laboratory Results: 01/16/19 03:25 01/16/19 03:25 01/16/19 01/16/19 03:25 03:25 WBC 10.9 H RBC 4.13 L Hgb 13.8 Hct 38.4 MCV 93 MCH 33.4 MCHC 36.0 RDW 12.8 Plt Count 172 Sodium 139.3 Potassium 4.3 Chloride 103 Carbon Dioxide 26 Anion Gap 10 BUN 20 Creatinine 0.92 Est GFR ( Amer) > 60 Est GFR (Non-Af Amer) > 60 Glucose 87 Calcium 9.6 Magnesium 2.1 Impressions: Head CT 01/13/19 19:04 IMPRESSION: 1. No acute intracranial findings. Head MRI 01/14/19 00:00 IMPRESSION: FOCAL AREA OF RESTRICTED DIFFUSION IN THE POSTERIOR RIGHT BRAIN STEM AT THE RIGHT MIDDLE CEREBELLAR PEDUNCLE, CONSISTENT WITH A SMALL ACUTE INFARCT. EVIDENCE OF ACUTE STROKE: NO. Carotid Doppler Study 01/15/19 00:00 IMPRESSION: NO HEMODYNAMICALLY SIGNIFICANT STENOSIS. Assessment and Plan - Diagnosis (1) Acute ischemic VBA brainstem stroke Qualifiers: Laterality: right Qualified Code(s): I63.211 - Cerebral infarction due to unspecified occlusion or stenosis of right vertebral artery; I63.22 - Cerebral infarction due to unspecified occlusion or stenosis of basilar artery Is this a current diagnosis for this admission?: Yes Plan: Patient recently flew on the plane, but no DVT. Echocardiogram pending. Continue blood pressure management, statin, aspirin. Patient to be transferred out of ICU when bed is available on the floor. Still with unsteady gait, continue PT/OT (2) Ear fullness Qualifiers: Laterality: bilateral Qualified Code(s): H93.8X3 - Other specified disorders of ear, bilateral Is this a current diagnosis for this admission?: Yes Plan: Resolved. (3) Fatigue Qualifiers: Fatigue type: unspecified Qualified Code(s): R53.83 - Other fatigue Is this a current diagnosis for this admission?: Yes Plan: Patient on metoprolol 200 mg daily--not sure why that high dose. He denies being on any medication as outpatient states he does not have a history of A. fib. Will reduce metoprolol to 100 mg daily. Besides his heart rate running high 50s-60. Will add amlodipine 5 mg p.o. daily for management of his BPs. (4) Hypertensive emergency Is this a current diagnosis for this admission?: Yes Plan: Continue lisinopril, as it is. Amlodipine added as above. Decrease metoprolol 100 mg daily (from 200mg) due to fatigue and relative bradycardia. (5) Obesity (BMI 30-39.9) Is this a current diagnosis for this admission?: Yes Plan: Weight loss counseling done. (6) Paresthesias Is this a current diagnosis for this admission?: Yes Plan: Likely due to CVA. Continue to monitor. (7) Hypertensive disorder Is this a current diagnosis for this admission?: Yes Plan: BP management.
[2019-01-16] MEDS: ATORVASTATIN CALCIUM 80 MG TABLET PO SCH (21:41)
[2019-01-16] MEDS: ASPIRIN 81 MG TABLET, ENT COATED PO SCH (21:41)
[2019-01-16] MEDS: LORAZEPAM INJ 2 MG/1 ML VIAL IV PRN (21:48)
[2019-01-17 05:41] LABS: HEMATOCRIT 41.9 % (37.9-51.0); MEAN CORPUSCULAR HEMOGLOBIN 33.1 pg (27.0-33.4); MEAN CORPUSCULAR HGB CONC 35.8 g/dL (32.0-36.0); MEAN CORPUSCULAR VOLUME 92 fl (80-97); PLATELET COUNT 182 10^3/uL (150-450); RED BLOOD COUNT 4.55 10^6/uL (4.35-5.55); RED CELL DISTRIBUTION WIDTH 12.8 % (11.5-14.0); WHITE BLOOD COUNT 12.2 10^3/uL (4.0-10.5)
[2019-01-17] MEDS: DOCUSATE SODIUM 100 MG CAPSULE PO SCH ×2 (11:43→20:18)
[2019-01-17] MEDS: HYDROCHLOROTHIAZIDE 12.5 MG TABLET PO SCH (11:43)
[2019-01-17] MEDS: METOPROLOL SUCCINATE 50 MG TAB.SR.24H PO SCH (11:44)
[2019-01-17] MEDS: LISINOPRIL 10 MG TABLET PO SCH (11:44)
[2019-01-17] MEDS: AMLODIPINE BESYLATE 5 MG TABLET PO SCH (11:45)
[2019-01-17] MEDS: FAMOTIDINE 20 MG TABLET PO SCH ×2 (11:45→21:27)
[2019-01-17] MEDS ORDERED: ENALAPRIL MALEATE 10 MG TABLET PO ONE (15:22)
[2019-01-17] MEDS: CHLORTHALIDONE 25 MG TABLET PO SCH (17:36)
--- NOTE | 2019-01-17 19:16 | RADIOLOGY REPORT (SQ) ---
EXAM DESCRIPTION: MRI HEAD WITHOUT COMPLETED DATE/TIME: 01/17/2019 6:43 pm REASON FOR STUDY: numbness/tingling L side COMPARISON: None. TECHNIQUE: Multiplanar imaging includes non-contrasted T1, T2, FLAIR, and diffusion with ADC map seq uences. Images stored on PACS. LIMITATIONS: None. FINDINGS: ANATOMY: No anomalies. Normal vascular flow voids. Pituitary fossa normal. CSF SPACES: Normal in size and contour. No hemorrhage. CEREBRUM: Sulci and gyri normal in size and contour. Normal white matter signal on FLAIR imaging. No evidence of hemorrhage, mass, or extraaxial fluid collection. POSTERIOR FOSSA: Small foci of increased T2 signal on FLAIR sequence in both cerebellar hemispheres . No hemorrhage. No edema, masses or mass effect. Internal auditory canals, cerebello-pontine angles, mastoids normal. DIFFUSION IMAGING: Positive for acute or sub-acute lacunar infarction, 5 x7 mm focus of restricted di ffusion in the right akosua. No other areas of restricted diffusion are identified. ORBITS: No masses. Globes normal. PARANASAL SINUSES: No fluid levels. Mucosa normal. OTHER: No other significant finding. IMPRESSION: Positive for acute or sub-acute lacunar infarction, 5 x7 mm focus of restricted diffusio n in the right akosua. Small foci of increased T2 signal on FLAIR sequence in both cerebellar hemispheres . EVIDENCE OF ACUTE STROKE: YES. RIGHT VERTEBROBASILAR TECHNICAL DOCUMENTATION: JOB ID: [id number] [place]-72 2010 [employer]- All Rights Reserved Reading location - IP/workstation name: [email or web address]
[2019-01-17] MEDS: ASPIRIN 81 MG TABLET, ENT COATED PO SCH (21:27)
[2019-01-17] MEDS: ATORVASTATIN CALCIUM 80 MG TABLET PO SCH (21:27)
[2019-01-17] MEDS: LORAZEPAM INJ 2 MG/1 ML VIAL IV PRN (22:43)
[2019-01-18] MEDS: FAMOTIDINE 20 MG TABLET PO SCH ×2 (09:19→21:40)
[2019-01-18] MEDS: CHLORTHALIDONE 25 MG TABLET PO SCH (09:19)
[2019-01-18] MEDS: DOCUSATE SODIUM 100 MG CAPSULE PO SCH ×2 (09:19→17:32)
[2019-01-18] MEDS ORDERED: ENALAPRIL MALEATE 5 MG TABLET PO SCH (10:00)
--- NOTE | 2019-01-18 15:09 | PDOC PROGRESS REPORT ---
Subjective Progress Note for:: 01/17/19 Subjective:: NICOLASA SOTO is a 38 year old male who presented to the emergency room with the sudden onset of paresthesias of the entire left side of his body. Patient indicates that he suddenly developed a moderate numbness and tingling sensation in his left arm earlier today and it gradually increased in intensity to moderately severe and grew to affect his entire left side including the torso, face and extremities. These paresthesias have been present since first noted la evening and have not resolved. Patient has additional symptoms of a low- grade frontal/retro-orbital headache, mild bilateral ear fullness and mild grogginess. He denies prior similar episodes and has not identified any aggravating or ameliorating factors for his paresthesias. In the emergency room he was found to be severely hypertensive with blood pressures of greater than 230/130 noted. He was subsequently placed on nicardipine infusion and his blood pressure was controlled however his paresthesias persisted. Because of his hypertensive emergency he will be admitted to the intensive care unit for further evaluation and treatment. 01/17/2019. No acute changes overnight. Patient still complaining of persistent left-sided paresthesias, otherwise denying any other focal neurological deficits. Patient ambulatory, evaluated by physical therapy, no rehab recommendation. On 01/17/2019 patient had mentioned to the primary nurse that he was noticing a change in his stitches on the left side. I was notified about it and I ordered a an stat MRI which was initially read as "acute or subacute lacunar infarction, 5 x 7 mm focus of restricted diffusion in the right akosua. Small foci of increased T2 signal on FLAIR sequence in both cerebellar hemispheres. Evidence of acute stroke: Yes. Right Vertebral basilar. " I noticed that this MRI was not compared to the previous MRI done on 01/14/2019. Dr. Finley and myself contacted with Roberto Carlos Leach who had read the MRI, and ask him if he could compare the MRI to the previous one which was done on this admission. When he compared the two MRIs he stated that there was no changes and he was going to an addendum on the report. Addendum was added to the report which should read as " compared with the prior study of 01/14/2019 there has been no interval change", when I evaluated the patient patient denied any new neurolog ical changes. He did his left-sided numbness has been persistent since admission. Reason For Visit: HYPERTENSIVE CRISIS Physical Exam Vital Signs: Temp Pulse Resp BP Pulse Ox 98.6 F 87 15 130/67 H 97 01/18/19 11:46 01/18/19 14:00 01/18/19 12:00 01/18/19 12:00 01/18/19 12:00 Intake & Output 01/17/19 01/18/19 01/19/19 06:59 06:59 06:59 Intake Total 1214 472 425 Balance 1214 472 425 Weight 116.4 kg 115.8 kg General appearance: PRESENT: no acute distress, obese, well-developed, well- nourished Head exam: PRESENT: atraumatic, normocephalic Eye exam: PRESENT: conjunctiva pink, EOMI, PERRLA. ABSENT: scleral icterus Ear exam: PRESENT: normal external ear exam Mouth exam: PRESENT: moist, tongue midline Neck exam: ABSENT: carotid bruit, JVD, lymphadenopathy, thyromegaly Respiratory exam: PRESENT: clear to auscultation hernandez. ABSENT: rales, rhonchi, wheezes Cardiovascular exam: PRESENT: RRR. ABSENT: diastolic murmur, rubs, systolic murmur Pulses: PRESENT: normal dorsalis pedis pul Vascular exam: PRESENT: normal capillary refill GI/Abdominal exam: PRESENT: normal bowel sounds, soft. ABSENT: distended, guarding, mass, organolmegaly, rebound, tenderness Rectal exam: PRESENT: deferred Extremities exam: PRESENT: full ROM. ABSENT: calf tenderness, clubbing, pedal edema Neurological exam: PRESENT: alert, awake, oriented to person, oriented to place, oriented to time, oriented to situation, CN II-XII grossly intact. ABSENT: motor sensory deficit Psychiatric exam: PRESENT: appropriate affect, normal mood. ABSENT: homicidal ideation, suicidal ideation Skin exam: PRESENT: dry, intact, warm. ABSENT: cyanosis, rash Results Laboratory Results: 01/17/19 04:37 01/16/19 03:25 Impressions: Head CT 01/13/19 19:04 IMPRESSION: 1. No acute intracranial findings. Carotid Doppler Study 01/15/19 00:00 IMPRESSION: NO HEMODYNAMICALLY SIGNIFICANT STENOSIS. Head MRI 01/17/19 00:00 IMPRESSION: Positive for acute or sub-acute lacunar infarction, 5 x7 mm focus of restricted diffusion in the right akosua. Small foci of increased T2 signal on FLAIR sequence in both cerebellar hemispheres . EVIDENCE OF ACUTE STROKE: YES. RIGHT VERTEBROBASILAR Assessment and Plan - Diagnosis (1) Hypertensive emergency Is this a current diagnosis for this admission?: Yes Plan: Improving, not optimized. SBP in 140s. Continue chlorthalidone and enalapril. Outpatient PCP follow-up. Initial blood pressure on admission 200s, which was gradually lowered allowing permissive hypertension in the first retention for the first 48 hours. (2) Acute ischemic VBA brainstem stroke Qualifiers: Laterality: right Qualified Code(s): I63.211 - Cerebral infarction due to unspecified occlusion or stenosis of right vertebral artery; I63.22 - Cerebral infarction due to unspecified occlusion or stenosis of basilar artery Is this a current diagnosis for this admission?: Yes Plan: Ischemic. In the right vertebrobasilar artery territory. Due to uncontrolled hypertension. Surgical persistent left-sided paresthesias. Negative for any other focal neurological deficits. Patient evaluated by PT/history no rehab recommended at this time. Continue high intensity statins, aspirin, optimize blood pressure. Initial blood pressure on admission 200s, which was gradually lowered allowing permissive hypertension in the first retention for the first 48 hours. 2D carotid negative for any hemodynamically significant stenosis. Pending 2D echo. Outpatient PCP and neurology follow-up. (3) Paresthesias Is this a current diagnosis for this admission?: Yes Plan: Likely due to CVA. Will start on gabapentin. Increase dosage gradually if needed. Outpatient PCP follow-up. (4) Fatigue Qualifiers: Fatigue type: unspecified Qualified Code(s): R53.83 - Other fatigue Is this a current diagnosis for this admission?: Yes Plan: Improved. Likely sequela of acute distress. (5) Obesity (BMI 30-39.9) Is this a current diagnosis for this admission?: Yes Plan: Diet and lifestyle modification. (6) Hypertension Is this a current diagnosis for this admission?: Yes Plan: As per problem #2. (7) Hyperlipemia Is this a current diagnosis for this admission?: Yes Plan: ASCVD score of 40%. Continue high intensity statins. Advised on diet modification. Follow-up with PCP for evaluation of LFTs
--- NOTE | 2019-01-18 15:46 | PDOC PROGRESS REPORT ---
Subjective Progress Note for:: 01/18/19 Subjective:: NICOLASA SOTO is a 38 year old male who presented to the emergency room with the sudden onset of paresthesias of the entire left side of his body. Patient indicates that he suddenly developed a moderate numbness and tingling sensation in his left arm earlier today and it gradually increased in intensity to moderately severe and grew to affect his entire left side including the torso, face and extremities. These paresthesias have been present since first noted la evening and have not resolved. Patient has additional symptoms of a low- grade frontal/retro-orbital headache, mild bilateral ear fullness and mild grogginess. He denies prior similar episodes and has not identified any aggravating or ameliorating factors for his paresthesias. In the emergency room he was found to be severely hypertensive with blood pressures of greater than 230/130 noted. He was subsequently placed on nicardipine infusion and his blood pressure was controlled however his paresthesias persisted. Because of his hypertensive emergency he will be admitted to the intensive care unit for further evaluation and treatment. 01/17/2019. No acute changes overnight. Patient still complaining of persistent left-sided paresthesias, otherwise denying any other focal neurological deficits. Patient ambulatory, evaluated by physical therapy, no rehab recommendation. On 01/17/2019 patient had mentioned to the primary nurse that he was noticing a change in his stitches on the left side. I was notified about it and I ordered a an stat MRI which was initially read as "acute or subacute lacunar infarction, 5 x 7 mm focus of restricted diffusion in the right akosua. Small foci of increased T2 signal on FLAIR sequence in both cerebellar hemispheres. Evidence of acute stroke: Yes. Right Vertebral basilar. " I noticed that this MRI was not compared to the previous MRI done on 01/14/2019. Dr. Finley and myself contacted with Roberto Carlos Leach who had read the MRI, and ask him if he could compare the MRI to the previous one which was done on this admission. When he compared the two MRIs he stated that there was no changes and he was going to an addendum on the report. Addendum was added to the report which should read as " compared with the prior study of 01/14/2019 there has been no interval change", when I evaluated the patient patient denied any new neurolog ical changes. He did his left-sided numbness has been persistent since admission. 01/18/2019. No acute events overnight. Unchanged persistent left-sided paresthesias. Patient was updated about the finding of his new MRI. He was counseled on importance of good BP control and regular PCP visit. Denies any new focal neurological deficits, weakness, headache, vision changes, or any balance problem. Denies any fever, chills, nausea, vomiting, diarrhea, constipation or any urinary symptoms. Reason For Visit: HYPERTENSIVE CRISIS Physical Exam Vital Signs: Temp Pulse Resp BP Pulse Ox 98.6 F 87 15 130/67 H 97 01/18/19 11:46 01/18/19 14:00 01/18/19 12:00 01/18/19 12:00 01/18/19 12:00 Intake & Output 01/17/19 01/18/19 01/19/19 06:59 06:59 06:59 Intake Total 1214 472 425 Balance 1214 472 425 Weight 116.4 kg 115.8 kg General appearance: PRESENT: no acute distress, well-developed, well-nourished Head exam: PRESENT: atraumatic, normocephalic Eye exam: PRESENT: conjunctiva pink, EOMI, PERRLA. ABSENT: scleral icterus Ear exam: PRESENT: normal external ear exam Mouth exam: PRESENT: moist, tongue midline Neck exam: ABSENT: carotid bruit, JVD, lymphadenopathy, thyromegaly Respiratory exam: PRESENT: clear to auscultation hernandez. ABSENT: rales, rhonchi, wheezes Cardiovascular exam: PRESENT: RRR. ABSENT: diastolic murmur, rubs, systolic murmur Pulses: PRESENT: normal dorsalis pedis pul Vascular exam: PRESENT: normal capillary refill GI/Abdominal exam: PRESENT: normal bowel sounds, soft. ABSENT: distended, guarding, mass, organolmegaly, rebound, tenderness Rectal exam: PRESENT: deferred Extremities exam: PRESENT: full ROM. ABSENT: calf tenderness, clubbing, pedal edema Neurological exam: PRESENT: alert, awake, oriented to person, oriented to place, oriented to time, oriented to situation, CN II-XII grossly intact. ABSENT: motor sensory deficit Psychiatric exam: PRESENT: appropriate affect, normal mood. ABSENT: homicidal ideation, suicidal ideation Skin exam: PRESENT: dry, intact, warm. ABSENT: cyanosis, rash Results Laboratory Results: 01/17/19 04:37 01/16/19 03:25 Impressions: Head CT 01/13/19 19:04 IMPRESSION: 1. No acute intracranial findings. Carotid Doppler Study 01/15/19 00:00 IMPRESSION: NO HEMODYNAMICALLY SIGNIFICANT STENOSIS. Head MRI 01/17/19 00:00 IMPRESSION: Positive for acute or sub-acute lacunar infarction, 5 x7 mm focus of restricted diffusion in the right akosua. Small foci of increased T2 signal on FLAIR sequence in both cerebellar hemispheres . EVIDENCE OF ACUTE STROKE: YES. RIGHT VERTEBROBASILAR Assessment and Plan - Diagnosis (1) Hypertensive emergency Is this a current diagnosis for this admission?: Yes Plan: Improving, not optimized. SBP in 140s. Continue chlorthalidone and enalapril. Outpatient PCP follow-up. Initial blood pressure on admission 200s, which was gradually lowered allowing permissive hypertension in the first retention for the first 48 hours. (2) Acute ischemic VBA brainstem stroke Qualifiers: Laterality: right Qualified Code(s): I63.211 - Cerebral infarction due to unspecified occlusion or stenosis of right vertebral artery; I63.22 - Cerebral infarction due to unspecified occlusion or stenosis of basilar artery Is this a current diagnosis for this admission?: Yes Plan: Ischemic. In the right vertebrobasilar artery territory. Due to uncontrolled hypertension. Surgical persistent left-sided paresthesias. Negative for any other focal neurological deficits. Patient evaluated by PT/history no rehab recommended at this time. Continue high intensity statins, aspirin, optimize blood pressure. Initial blood pressure on admission 200s, which was gradually lowered allowing permissive hypertension in the first retention for the first 48 hours. 2D carotid negative for any hemodynamically significant stenosis. Pending 2D echo. Outpatient PCP and neurology follow-up. Note: On 01/17/2019 patient had mentioned to the primary nurse that he was noticing a change in his stitches on the left side. I was notified about it and I ordered a an stat MRI which was initially read as "acute or subacute lacunar i nfarction, 5 x 7 mm focus of restricted diffusion in the right akosua. Small foci of increased T2 signal on FLAIR sequence in both cerebellar hemispheres. Evidence of acute stroke: Yes. Right Vertebral basilar. " I noticed that this MRI was not compared to the previous MRI done on 01/14/2019. Dr. Finley and myself contacted with Roberto Carlos Leach who had read the MRI, and ask him if he could compare the MRI to the previous one which was done on this admission. When he compared the two MRIs he stated that there was no changes and he was going to an addendum on the report. Addendum was added to the report which should read as " compared with the prior study of 01/14/2019 there has been no interval change", when I evaluated the patient patient denied any new neurological changes. He did his left-sided numbness has been persistent since admission. (3) Paresthesias Is this a current diagnosis for this admission?: Yes Plan: Likely due to CVA. Will start on gabapentin. Increase dosage gradually if needed. Outpatient PCP follow-up. (4) Fatigue Qualifiers: Fatigue type: unspecified Qualified Code(s): R53.83 - Other fatigue Is this a current diagnosis for this admission?: Yes Plan: Improved. Likely sequela of acute distress. (5) Obesity (BMI 30-39.9) Is this a current diagnosis for this admission?: Yes Plan: Diet and lifestyle modification. (6) Hypertension Is this a current diagnosis for this admission?: Yes Plan: As per problem #2. (7) Hyperlipemia Is this a current diagnosis for this admission?: Yes Plan: ASCVD score of 40%. Continue high intensity statins. Advised on diet modification. Follow-up with PCP for evaluation of LFTs
[2019-01-18] MEDS: GABAPENTIN 100 MG CAPSULE PO SCH ×2 (17:32→21:40)
[2019-01-18] MEDS: ATORVASTATIN CALCIUM 80 MG TABLET PO SCH (21:40)
[2019-01-18] MEDS: LORAZEPAM INJ 2 MG/1 ML VIAL IV PRN (21:40)
[2019-01-18] MEDS: ASPIRIN 81 MG TABLET, ENT COATED PO SCH (21:40)
[2019-01-19 05:26] LABS: ABSOLUTE BASOPHILS # (AUTO) 0.1 10^3/uL (0.0-0.2); ABSOLUTE EOSINOPHILS # (AUTO) 0.3 10^3/uL (0.0-0.6); ABSOLUTE LYMPHOCYTES (AUTO) 2.6 10^3/uL (0.5-4.7); ABSOLUTE NEUT (AUTO) 7.9 10^3/uL (1.7-8.2); BASOPHILS % (AUTO) 0.5 % (0-2); EOSINOPHILS % (AUTO) 2.1 % (0-6); HEMATOCRIT 43.9 % (37.9-51.0); HEMOGLOBIN 15.7 g/dL (13.5-17.0); LYMPHOCYTES % (AUTO) 22.2 % (13-45); MEAN CORPUSCULAR HEMOGLOBIN 33.2 pg (27.0-33.4); MEAN CORPUSCULAR HGB CONC 35.9 g/dL (32.0-36.0); MEAN CORPUSCULAR VOLUME 93 fl (80-97); MONOCYTES % (AUTO) 8.7 % (3-13); PLATELET COUNT 204 10^3/uL (150-450); RED BLOOD COUNT 4.74 10^6/uL (4.35-5.55); RED CELL DISTRIBUTION WIDTH 13.1 % (11.5-14.0); SEGMENTED NEUTROPHILS % (AUTO) 66.5 % (42-78); TOTAL CELLS COUNTED % (AUTO) 100 %; WHITE BLOOD COUNT 11.9 10^3/uL (4.0-10.5)
[2019-01-19] MEDS: GABAPENTIN 100 MG CAPSULE PO SCH (05:41)
[2019-01-19 05:54] LABS: ANION GAP 13 (5-19); BLOOD UREA NITROGEN 24 mg/dL (7-20); CALCIUM 10.3 mg/dL (8.4-10.2); CARBON DIOXIDE 24 mmol/L (22-30); CHLORIDE 102 mmol/L (98-107); GLUCOSE 109 mg/dL (75-110); POTASSIUM 4.4 mmol/L (3.6-5.0); SODIUM 139.1 mmol/L (137-145)
[2019-01-19 08:20] VITALS: BP 131/73
[2019-01-19] MEDS ORDERED: ENALAPRIL MALEATE 10 MG TABLET PO SCH (10:00)
--- NOTE | 2019-01-19 21:45 | XCELERA REPORT ---
[address] [address] Transthoracic Echocardiogram Report Name: NICOLASA SOTO Age: 38 yrs Gender: Male : 1980 Patient Status: Inpatient Patient Location: [address] [place] [address] Study Date: 01/18/2019 07:18 PM Height: 71 in Weight: 255 lb BSA: 2.3 m2 Procedure: A two-dimensional transthoracic echocardiogram with color flow and Doppler was performed. Study Quality: Poor. The study was technically difficult with many images being suboptimal in quality. Images were not obtained from all of the standard acoustic windows due to the limited scope of the study. Reason For Study: CVA History: CVA. Ordering Physician: KIM LEDESMA Performed By: Aliyah Rivers Interpretation Summary The left ventricle is grossly normal size. Probaly there is mild LVH.No True apical 2 chamber views obtained.Hence cannot comment on the apical anterior , the basal anterior, the basal inferior and apical inferior leonard.The mid anterior , the mid inferior and the rest of the LV leonard contract normally. . LVEF is normal and is greater than 60% in the limited views. Doppler measurements suggest impaired left ventricular relaxation, which is associated with grade I/IV or mild diastolic dysfunction Not a study to assess for LV clots or ASD,VSD , or PFO.Recommend SHELBY. The left atrial size is normal. There is a trace amount of mitral regurgitation There is no mitral valve stenosis. There is no evidence of mitral valve prolapse. There is no aortic valve stenosis No aortic regurgitation is present. There is no tricuspid stenosis. There is a trace amount of tricuspid regurgitation No significant pulmonary hypertension.RVSP is 32 mm of Hg , with RA mean of 10. There is no pulmonic valvular stenosis. There is a trace amount of pulmonic regurgitation The aortic root is not well visualized. The inferior vena cava was not visualized There is no pericardial effusion. MMode/2D Measurements & Calculations RVDd: 2.9 cm LVIDd: 4.6 cm FS: 33.6 % Ao root diam: 3.1 cm IVSd: 1.4 cm LVIDs: 3.0 cm EDV(Teich): 97.0 ml Ao root area: 7.7 cm2 LVPWd: 1.1 cm ESV(Teich): 36.4 ml LA dimension: 3.3 cm EF(Teich): 62.5 % Doppler Measurements & Calculations MV E max tamera: MV P1/2t max tamera: Ao V2 max: LV V1 max P.5 cm/sec 67.8 cm/sec 95.6 cm/sec 1.9 mmHg MV A max tamera: MV P1/2t: 40.2 msec Ao max PG: LV V1 max: 56.2 cm/sec MVA(P1/2t): 5.5 cm2 3.7 mmHg 69.2 cm/sec MV E/A: 0.72 MV dec slope: 493.4 cm/sec2 MV dec time: 0.18 sec PA V2 max: PI end-d tamera: TR max tamera: MV P1/2t-pr_phl: 104.5 cm/sec 131.7 cm/sec 231.1 cm/sec 40.2 msec PA max PG: TR max P.4 mmHg 21.4 mmHg Left Ventricle The left ventricle is grossly normal size. Probaly there is mild LVH.No True apical 2 chamber views obtained.Hence cannot comment on the apical anterior , the basal anterior, the basal inferior and apical inferior leonard.The mid anterior , the mid inferior and the rest of the LV leonard contract normally. . LVEF is normal and is greater than 60% in the limited views. Doppler measurements suggest impaired left ventricular relaxation, which is associated with grade I/IV or mild diastolic dysfunction. Not a study to assess for LV clots or ASD,VSD , or PFO.Recommend SHELBY. Right Ventricle The right ventricle is not well visualized secondary to technical limitations. Atria Right atrium not well visualized secondary to technical limitations. The left atrial size is normal. Mitral Valve There is no evidence of mitral valve prolapse. There is no mitral valve stenosis. There is a trace amount of mitral regurgitation. Aortic Valve There is no aortic valve stenosis. No aortic regurgitation is present. Tricuspid Valve There is no tricuspid stenosis. There is a trace amount of tricuspid regurgitation. No significant pulmonary hypertension.RVSP is 32 mm of Hg , with RA mean of 10. Pulmonic Valve There is no pulmonic valvular stenosis. There is a trace amount of pulmonic regurgitation. Great Vessels The aortic root is not well visualized. The inferior vena cava was not visualized. Effusions There is no pericardial effusion. : KIM LEDESMA > Carol Reese
--- NOTE | 2019-02-04 06:54 | PDOC DISCHARGE SUMMARY ---
General - Admit/Disc Date/PCP Admission Date/Primary Care Provider: 01/14/19 02:41 Discharge Date: 01/19/19 - Discharge Diagnosis (1) Hypertensive emergency Is this a current diagnosis for this admission?: Yes (2) Acute ischemic VBA brainstem stroke Is this a current diagnosis for this admission?: Yes (3) Paresthesias Is this a current diagnosis for this admission?: Yes (4) Fatigue Is this a current diagnosis for this admission?: Yes (5) Obesity (BMI 30-39.9) Is this a current diagnosis for this admission?: Yes (6) Hypertension Is this a current diagnosis for this admission?: Yes (7) Hyperlipemia Is this a current diagnosis for this admission?: Yes - Additional Information Resuscitation Status: Full Code Discharge Diet: As Tolerated, Cardiac Discharge Activity: Activity As Tolerated Prescriptions: Aspirin [Ecotrin 81 mg EC Tablet] 81 mg PO QHS 30 Days #30 tabec Atorvastatin Calcium [Lipitor 80 mg Tablet] 80 mg PO QHS 30 Days #30 tablet Chlorthalidone [Hygroton 25 mg Tablet] 25 mg PO DAILY 30 Days #30 tablet Enalapril Maleate [Vasotec 10 mg Tablet] 10 mg PO DAILY 30 Days #30 tablet Gabapentin [Neurontin 100 mg Capsule] 200 mg PO Q8 30 Days #90 capsule Home Medications: Aspirin [Ecotrin 81 mg EC Tablet] 81 mg PO QHS 30 Days #30 tabec 01/19/19 Atorvastatin Calcium [Lipitor 80 mg Tablet] 80 mg PO QHS 30 Days #30 tablet 01/19/19 Chlorthalidone [Hygroton 25 mg Tablet] 25 mg PO DAILY 30 Days #30 tablet 01/19/19 Enalapril Maleate [Vasotec 10 mg Tablet] 10 mg PO DAILY 30 Days #30 tablet 01/19/19 Gabapentin [Neurontin 100 mg Capsule] 200 mg PO Q8 30 Days #90 capsule 01/19/19 History of Present Illness History of Present Illness: NICOLASA SOTO is a 38 year old male who presented to the emergency room with the sudden onset of paresthesias of the entire left side of his body. Patient indicates that he suddenly developed a moderate numbness and tingling sensation in his left arm earlier today and it gradually increased in intensity to moderately severe and grew to affect his entire left side including the torso, face and extremities. These paresthesias have been present since first noted last evening and have not resolved. Patient has additional symptoms of a low- grade frontal/retro-orbital headache, mild bilateral ear fullness and mild grogginess. He denies prior similar episodes and has not identified any aggravating or ameliorating factors for his paresthesias. In the emergency room he was found to be severely hypertensive with blood pressures of greater than 230/130 noted. He was subsequently placed on nicardipine infusion and his blood pressure was controlled however his paresthesias persisted. Because of his hypertensive emergency he will be admitted to the intensive care unit for further evaluation and treatment. 01/17/2019. No acute changes overnight. Patient still complaining of persistent left-sided paresthesias, otherwise denying any other focal neurological deficits. Patient ambulatory, evaluated by physical therapy, no rehab recommendation. On 01/17/2019 patient had mentioned to the primary nurse that he was noticing a change in his stitches on the left side. I was notified about it and I ordered a an stat MRI which was initially read as "acute or subacute lacunar infarction, 5 x 7 mm focus of restricted diffusion in the right akosua. Small foci of increased T2 signal on FLAIR sequence in both cerebellar hemispheres. Evidence of acute stroke: Yes. Right Vertebral basilar. " I noticed that this MRI was not compared to the previous MRI done on 01/14/2019. Dr. Finley and myself contacted with Roberto Carlos Leach who had read the MRI, and ask him if he could compare the MRI to the previous one which was done on this admission. When he compared the two MRIs he stated that there was no changes and he was going to an addendum on the report. Addendum was added to the report which should read as " compared with the prior study of 01/14/2019 there has been no interval change", when I evaluated the patient patient denied any new neurological changes. He did his left-sided numbness has been persistent since admission. 01/18/2019. No acute events overnight. Unchanged persistent left-sided paresthesias. Patient was updated about the finding of his new MRI. He was counseled on importance of good BP control and regular PCP visit. Denies any new focal neurological deficits, weakness, headache, vision changes, or any balance problem. Denies any fever, chills, nausea, vomiting, diarrhea, constipation or any urinary symptoms. Hospital Course Hospital Course: (1) Hypertensive emergency Improved. SBP in 130s. Outpatient PCP follow-up with Dr. Best. Initial blood pressure on admission 200s, which was gradually lowered allowing permissive hypertension in the first retention for the first 48 hours. Discharged on aspirin 81 p.o. daily, atorvastatin 80 mg p.o. daily, chlorthalidone 25 mg p.o. daily, enalapril 10 mg p.o. daily, gabapentin 200 mg p.o. daily every 8 hours (2) Acute ischemic VBA brainstem stroke Ischemic. Nonhemorrhagic. In the right vertebrobasilar artery territory. Due to uncontrolled hypertension. Surgical persistent left-sided paresthesias. Negative for any other focal neurological deficits. Patient evaluated by PT/history no rehab recommended at this time. Continue high intensity statins, aspirin, optimize blood pressure. Initial blood pressure on admission 200s, which was gradually lowered allowing permissive hypertension in the first retention for the first 48 hours. 2D carotid negative for any hemodynamically significant stenosis. 2D echo ejection fraction more than 60%. Outpatient PCP and neurology follow-up. Note: On 01/17/2019 patient had mentioned to the primary nurse that he was noticing a change in his stitches on the left side. I was notified about it and I ordered a an stat MRI which was initially read as "acute or subacute lacunar infarction, 5 x 7 mm focus of restricted diffusion in the right akos[place]. Small foci of increased T2 signal on FLAIR sequence in both cerebellar hemispheres. Evidence of acute stroke: Yes. Right Vertebral basilar. " I noticed that this MRI was not compared to the previous MRI done on 01/14/2019. Dr. Finley and myself contacted with Roberto Carlos Leach who had read the MRI, and ask him if he could compare the MRI to the previous one which was done on this admission. When he compared the two MRIs he stated that there was no changes and he was going to an addendum on the report. Addendum was added to the report which should read as " compared with the prior study of 01/14/2019 there has been no interval change", when I evaluated the patient patient denied any new neurological changes. He did his left-sided numbness has been persistent since admission. Discharged on aspirin 81 p.o. daily, atorvastatin 80 mg p.o. daily, chlorthalidone 25 mg p.o. daily, enalapril 10 mg p.o. daily, gabapentin 200 mg p.o. daily every 8 hours (3) Paresthesias Likely due to CVA. Mild improvement on gabapentin. Discharged on gabapentin 200 mg p.o. every 8 increase dosage gradually if needed. Outpatient PCP follow- up. (4) Fatigue Improved. Likely sequela of acute distress. (5) Obesity (BMI 30-39.9) Diet and lifestyle modification. (6) Hypertension As per problem #2. Discharged on aspirin 81 p.o. daily, atorvastatin 80 mg p.o. daily, chlorthalidone 25 mg p.o. daily, enalapril 10 mg p.o. daily, gabapentin 200 mg p.o. daily every 8 hours (7) Hyperlipemia ASCVD score of 40%. Continue high intensity statins. Advised on diet modification. Follow-up with PCP for evaluation of LFTs Physical Exam Vital Signs: Temp Pulse Resp BP Pulse Ox 98.9 F 77 17 150/105 H 97 01/19/19 08:03 01/19/19 08:03 01/19/19 08:03 01/19/19 08:03 01/19/19 08:03 General appearance: PRESENT: no acute distress, well-developed, well-nourished Head exam: PRESENT: atraumatic, normocephalic Eye exam: PRESENT: conjunctiva pink, EOMI, PERRLA. ABSENT: scleral icterus Ear exam: PRESENT: normal external ear exam Mouth exam: PRESENT: moist, tongue midline Neck exam: ABSENT: carotid bruit, JVD, lymphadenopathy, thyromegaly Respiratory exam: PRESENT: clear to auscultation hernandez. ABSENT: rales, rhonchi, wheezes Cardiovascular exam: PRESENT: RRR. ABSENT: diastolic murmur, rubs, systolic murmur Pulses: PRESENT: normal dorsalis pedis pul Vascular exam: PRESENT: normal capillary refill GI/Abdominal exam: PRESENT: normal bowel sounds, soft. ABSENT: distended, guarding, mass, organolmegaly, rebound, tenderness Rectal exam: PRESENT: deferred Extremities exam: PRESENT: full ROM. ABSENT: calf tenderness, clubbing, pedal edema Neurological exam: PRESENT: alert, awake, oriented to person, oriented to place, oriented to time, oriented to situation, CN II-XII grossly intact, other. ABSENT: motor sensory deficit Psychiatric exam: PRESENT: appropriate affect, normal mood. ABSENT: homicidal ideation, suicidal ideation Skin exam: PRESENT: dry, intact, warm. ABSENT: cyanosis, rash Results Laboratory Results: 01/19/19 04:25 01/19/19 04:25 Impressions: Head CT 01/13/19 19:04 IMPRESSION: 1. No acute intracranial findings. Carotid Doppler Study 01/15/19 00:00 IMPRESSION: NO HEMODYNAMICALLY SIGNIFICANT STENOSIS. Head MRI 01/17/19 00:00 IMPRESSION: Positive for acute or sub-acute lacunar infarction, 5 x7 mm focus of restricted diffusion in the right akosua. Small foci of increased T2 signal on FLAIR sequence in both cerebellar hemispheres . EVIDENCE OF ACUTE STROKE: YES. RIGHT VERTEBROBASILAR Qualifiers - * PATIENT BEING DISCHARGED WITH ANY OF THE FOLLOWING DIAGNOSIS: Stroke VTE patient discharged on overlapping Therapy?: Yes Stroke Pt being discharged on Anti-thrombolytic therapy?: Yes Stroke Pt being discharged on Anti-coagulation therapy?: No Reason(s) for not prescribing Anti-coagulation therapy:: Not indicated Stroke Pt being discharged on Statins?: Yes Acute Heart Failure Is this a Heart Failure Patient?: No
== END 2019-01-19 08:55 | disposition home or self-care (01) | DRG 65 ==
LOC: ER 18:48 → EH 01-14 02:41 → ICU 01-14 04:40 → 3N 01-16 16:06
PROVIDERS: ADMIT Emergency Medicine; ATTEND Emergency Medicine
DX: I63.211 Cerebral infarction due to unspecified occlusion or stenosis of right vertebral artery (principal); I16.1 Hypertensive emergency; E66.9 Obesity, unspecified; I10 Essential (primary) hypertension; E78.00 Pure hypercholesterolemia, unspecified; E78.1 Pure hyperglyceridemia; R20.2 Paresthesia of skin; R53.83 Other fatigue; H93.8X3 Other specified disorders of ear, bilateral; R29.700 NIHSS score 0; Z68.30 Body mass index [BMI] 30.0-30.9, adult; Z79.82 Long term (current) use of aspirin; Z82.49 Family history of ischemic heart disease and other diseases of the circulatory system
CPT/HCPCS: 36415; 70450; 70551; 80048; 80053; 80061; 81001; 83735; 84439; 84443; 84481; 85025; 85027; 85610; 85730; 93306; 93880; 99291; J2060; J3490

== ENCOUNTER 2020-08-13 09:38 | Emergency (ER) | payer BC, OTHER ==
--- NOTE | 2020-08-13 10:41 | ER Document Report ---
ED Medical Screen (RME) - General Chief Complaint: Numbness Stated Complaint: TINGLING LEFT SIDE, PAIN LEFT EYE Time Seen by Provider: 08/13/20 10:38 Mode of Arrival: Ambulatory Information source: Patient Notes: 40-year-old male presented to ED for numbness to the left side. He states he did have a TIA in December 2018. He states he had some numbness to the left side from that but the increased numbness and tingling started this morning he does have equal strength he does not have any palmar drift does not have any leg drift does not have any facial droop but will get a CT and blood work to prior history of TIA. He states he does not smoke, drinks weekly, no illicit drugs. He does have high blood pressure and is on blood pressure medicines. I have greeted and performed a rapid initial assessment of this patient. A comprehensive ED assessment and evaluation of the patient, analysis of test results and completion of medical decision making process will be conducted by an additional ED providers. TRAVEL OUTSIDE OF THE [place] IN LAST 30 DAYS: No - Related Data Allergies/Adverse Reactions: No Known Allergies Allergy (Unverified 02/26/11 14:12) Past Medical History - Past Medical History Cardiac Medical History: Reports: Hx Hypertension - Stopped taking medications about 5 years ago Denies: Hx Coronary Artery Disease, Hx Heart Attack, Hx Hypercholesterolemia Pulmonary Medical History: Denies: Hx Asthma, Hx Bronchitis, Hx COPD, Hx Pneumonia Neurological Medical History: Denies: Hx Cerebrovascular Accident, Hx Seizures Endocrine Medical History: Denies: Hx Diabetes Mellitus Type 1, Hx Diabetes Mellitus Type 2, Hx Hyperthyroidism, Hx Hypothyroidism Renal/ Medical History: Denies: Hx Peritoneal Dialysis GI Medical History: Denies: Hx Cirrhosis Musculoskeltal Medical History: Denies Hx Arthritis, Denies Hx Gout Skin Medical History: Denies Hx Eczema, Denies Hx Psoriasis Psychiatric Medical History: Denies: Hx Depression Infectious Medical History: Past Surgical History: Reports: Hx Orthopedic Surgery - hernandez ACL surgery. Denies: Hx Pacemaker - Immunizations Hx Diphtheria, Pertussis, Tetanus Vaccination: Yes Physical Exam - Vital signs Vitals: Temp Pulse Resp BP Pulse Ox 98.4 F 75 18 143/97 H 97 08/13/20 09:51 08/13/20 09:51 08/13/20 09:51 08/13/20 09:51 08/13/20 09:51 Course - Vital Signs Vital signs: Temp Pulse Resp BP Pulse Ox 98.4 F 75 18 143/97 H 97 08/13/20 09:51 08/13/20 09:51 08/13/20 09:51 08/13/20 09:51 08/13/20 09:51
--- NOTE | 2020-08-13 11:15 | RADIOLOGY REPORT (SQ) ---
EXAM DESCRIPTION: CT HEAD WITHOUT IMAGES COMPLETED DATE/TIME: 08/13/2020 10:56 am REASON FOR STUDY: numbness tingling left arm and side COMPARISON: None. TECHNIQUE: Axial images acquired through the brain without intravenous contrast. Images reviewed wi th bone, brain and subdural windows. Additional sagittal and coronal reconstructions were generated. Images stored on PACS. All CT scanners at this facility use dose modulation, iterative reconstruction, and/or weight based d osing when appropriate to reduce radiation dose to as low as reasonably achievable (ALARA). [facility]: Dose Right [facility]: CareDose [facility]: Dose Right [facility]: Teradose 4D [facility]: Market Wire RADIATION DOSE: CT Rad equipment meets quality standard of care and radiation dose reduction techniq ues were employed. CTDIvol: 53.2 mGy. DLP: 1070 mGy-cm. LIMITATIONS: None. FINDINGS: VENTRICLES: Normal size and contour. The cisterns are patent. CEREBRUM: No masses. No hemorrhage. No midline shift. No evidence for acute infarction. Normal gra y/white matter differentiation. No areas of low density in the white matter. CEREBELLUM: No masses. No hemorrhage. No alteration of density. No evidence for acute infarction. EXTRAAXIAL SPACES: No fluid collections. No masses. ORBITS AND GLOBE: No intra- or extraconal masses. Normal contour of globe without masses. CALVARIUM: No fracture. PARANASAL SINUSES: No fluid or mucosal thickening. SOFT TISSUES: No mass or hematoma. OTHER: No other significant finding. IMPRESSION: 1. No acute intracranial abnormality. EVIDENCE OF ACUTE STROKE: NO. COMMENT: Quality ID # [id number]: Final reports with documentation of one or more dose reduction techniques (e.g., Automated exposure control, adjustment of the mA and/or kV according to patient size, use of iterative reconstruction technique) TECHNICAL DOCUMENTATION: JOB ID: [id number] 2010 [employer]- All Rights Reserved Reading location - IP/workstation name: [email or web address]
[2020-08-13 11:32] LABS: APPEARANCE,URINE CLEAR; BILIRUBIN,URINE NEGATIVE (NEGATIVE); COLOR,URINE YELLOW; GLUCOSE, URINE NEGATIVE (NEGATIVE); KETONES,URINE NEGATIVE (NEGATIVE); LEUKOCYTE ESTERASE,URINE NEGATIVE (NEGATIVE); NITRITE,URINE NEGATIVE (NEGATIVE); PROTEIN,URINE NEGATIVE (NEGATIVE); URINE SPECIFIC GRAVITY 1.008; UROBILINOGEN,URINE NEGATIVE mg/dL (<2.0)
[2020-08-13 11:33] LABS: ABSOLUTE BASOPHILS # (AUTO) 0.1 10^3/uL (0.0-0.2); ABSOLUTE EOSINOPHILS # (AUTO) 0.2 10^3/uL (0.0-0.6); ABSOLUTE LYMPHOCYTES (AUTO) 2.1 10^3/uL (0.5-4.7); ABSOLUTE MONOCYTES (AUTO) 0.6 10^3/uL (0.1-1.4); BASOPHILS % (AUTO) 0.9 % (0-2); EOSINOPHILS % (AUTO) 1.9 % (0-6); HEMOGLOBIN 14.9 g/dL (13.5-17.0); LYMPHOCYTES % (AUTO) 23.4 % (13-45); MEAN CORPUSCULAR HEMOGLOBIN 32.2 pg (27.0-33.4); MEAN CORPUSCULAR HGB CONC 35.4 g/dL (32.0-36.0); MEAN CORPUSCULAR VOLUME 91 fl (80-97); MONOCYTES % (AUTO) 6.8 % (3-13); PLATELET COUNT 183 10^3/uL (150-450); RED BLOOD COUNT 4.62 10^6/uL (4.35-5.55); RED CELL DISTRIBUTION WIDTH 12.9 % (11.5-14.0); TOTAL CELLS COUNTED % (AUTO) 100 %
[2020-08-13 11:35] LABS: INTERNATIONAL RATION (INR) 0.87; PROTHROMBIN TIME 12.1 SEC (11.4-15.4)
[2020-08-13 11:36] LABS: PARTIAL THROMBOPLASTIN TIME 23.3 SEC (23.5-35.8)
[2020-08-13 11:46] LABS: ALBUMIN 4.8 g/dL (3.5-5.0); ALKALINE PHOSPHATASE 83 U/L (38-126); ANION GAP 11 (5-19); ASPARTATE AMINO TRANSFERASE 28 U/L (17-59); BILIRUBIN,TOTAL 1.5 mg/dL (0.2-1.3); BLOOD UREA NITROGEN 19 mg/dL (7-20); CALCIUM 10.2 mg/dL (8.4-10.2); CARBON DIOXIDE 29 mmol/L (22-30); CHLORIDE 100 mmol/L (98-107); GLUCOSE 91 mg/dL (75-110); TOTAL PROTEIN 7.8 g/dL (6.3-8.2)
[2020-08-13] MEDS ORDERED: DEXTROSE 5%-LACTATED RINGERS 1,000 ML IV ONE (13:00)
--- NOTE | 2020-08-13 15:19 | RADIOLOGY REPORT (SQ) ---
EXAM DESCRIPTION: MRI HEAD WITHOUT IMAGES COMPLETED DATE/TIME: 08/13/2020 3:03 pm REASON FOR STUDY: left weakness/tingling/upper greater than lower COMPARISON: 01/17/2019 TECHNIQUE: Multiplanar imaging includes non-contrasted T1, T2, FLAIR, and diffusion with ADC map seq uences. Images stored on PACS. LIMITATIONS: None. FINDINGS: ANATOMY: No anomalies. Normal vascular flow voids. Pituitary fossa normal. CSF SPACES: Normal in size and contour. No hemorrhage. CEREBRUM: Sulci and gyri normal in size and contour. There appears to be a small old lacunar infarct ion in the right side of the akosua. Normal white matter signal on FLAIR imaging. No evidence of hemo rrhage, mass, or extraaxial fluid collection. POSTERIOR FOSSA: No signal alteration. No hemorrhage. No edema, masses or mass effect. Internal amy tory canals, cerebello-pontine angles, mastoids normal. DIFFUSION IMAGING: Negative for acute or sub-acute infarction. ORBITS: No masses. Globes normal. PARANASAL SINUSES: No fluid levels. Mucosa normal. OTHER: No other significant finding. IMPRESSION: Small old lacunar infarction in the right side of the akosua. No acute findings in the br ain. EVIDENCE OF ACUTE STROKE: NO. TECHNICAL DOCUMENTATION: JOB ID: [id number] 2010 [employer]- All Rights Reserved Reading location - IP/workstation name: [email or web address]
--- NOTE | 2020-08-13 15:22 | RADIOLOGY REPORT (SQ) ---
EXAM DESCRIPTION: MRA HEAD WITHOUT IMAGES COMPLETED DATE/TIME: 08/13/2020 3:03 pm REASON FOR STUDY: left sided tingling COMPARISON: 01/17/2019 TECHNIQUE: Axial 3-D [id number] acquisition imaging performed through the brain in the area of t he [place] of [place]. Images reformatted using 3-D MIPS. LIMITATIONS: None. FINDINGS: SOURCE IMAGES: No unexpected findings on source images. No large masses. 3-D MIP: No aneurysm. No occlusions. No significant stenosis. OTHER: No other significant finding. IMPRESSION: NORMAL MRA OF THE [place] OF [place]. TECHNICAL DOCUMENTATION: JOB ID: [id number] 2010 [employer]- All Rights Reserved Reading location - IP/workstation name: [email or web address]
--- NOTE | 2020-08-13 15:24 | RADIOLOGY REPORT (SQ) ---
EXAM DESCRIPTION: MRA NECK WITHOUT IMAGES COMPLETED DATE/TIME: 08/13/2020 3:03 pm REASON FOR STUDY: tingling over left side of body COMPARISON: None. TECHNIQUE: Axial 2-D volume acquisition imaging through the extracranial carotid and vertebral arter ies with reformatting using 3-D MIPS. LIMITATIONS: None. FINDINGS: RIGHT CAROTID ARTERY: No stenosis or occlusive changes. Limited visualization of the orig in. LEFT CAROTID ARTERY: No stenosis or occlusive changes. Limited visualization of the origin. VERTEBRAL ARTERY: The extracranial portions of the vertebral basilar system are preserved without cameron nosis. No aneurysmal dilatation or dissection is seen. OTHER: No other significant finding. IMPRESSION: NO SIGNIFICANT STENOSIS. COMMENT: Quality ID #[id number]: Measurements of distal internal carotid diameter were used as the denomin ator for stenosis measurement. TECHNICAL DOCUMENTATION: JOB ID: [id number] 2010 [employer]- All Rights Reserved Reading location - IP/workstation name: [email or web address]
--- NOTE | 2020-08-13 15:53 | EKG REPORT ---
SEVERITY:- NORMAL ECG - SINUS RHYTHM : Confirmed by: Carol Reese MD 13-Aug-2020 15:52:21
--- NOTE | 2020-08-13 16:36 | RADIOLOGY REPORT (SQ) ---
EXAM DESCRIPTION: CHEST SINGLE VIEW IMAGES COMPLETED DATE/TIME: 08/13/2020 4:25 pm REASON FOR STUDY: htn/prior CVA COMPARISON: PA and lateral views of the chest from 06/21/2014. EXAM PARAMETERS: NUMBER OF VIEWS: One view. TECHNIQUE: An AP view of the chest was obtained. RADIATION DOSE: NA LIMITATIONS: None. FINDINGS: LUNGS AND PLEURA: No consolidation, pleural effusion or pneumothorax. MEDIASTINUM AND HILAR STRUCTURES: No mediastinal or hilar contour abnormality. HEART AND VASCULAR STRUCTURES: The cardiac silhouette and pulmonary vasculature are within normal barba its. BONES: No acute findings. HARDWARE: None in the chest. OTHER: No other finding. IMPRESSION: No acute cardiopulmonary process. TECHNICAL DOCUMENTATION: JOB ID: [id number] 2010 [employer]- All Rights Reserved Reading location - IP/workstation name: [email or web address]
--- NOTE | 2020-08-13 17:56 | XCELERA REPORT ---
[address] [address] Transthoracic Echocardiogram Report Name: NICOLASA SOTO Age: 40 yrs Gender: Male : 1980 Patient Status: Emergency Patient Location: ER Study Date: 08/13/2020 03:02 PM Height: 71 in Weight: 250 lb BSA: 2.3 m2 Procedure: A complete two-dimensional transthoracic echocardiogram was performed (2D, M-mode, spectral and color flow Doppler). The study was technically difficult with many images being suboptimal in quality. Reason For Study: lef sided tingling/weak upper greater than lower, WITH BUBBLE STUDY Ordering Physician: DIMITRIS IYER Performed By: Aliyah Rivers Interpretation Summary Difficult study for interpretation with suboptimal windows. Normal size cavity with borderline to very mild concentric left ventricular hypertrophy. Left ventricular systolic function is normal. The Ejection Fraction estimate is 60-65%. Doppler measurements suggest impaired left ventricular relaxation, which is associated with grade I/IV or mild diastolic dysfunction. Regional wall motion abnormalities cannot be excluded due to limited visualization. Trace MR, trace TR, trace PI. Agitated saline contrast study negative for shunt at the interatrial level. Essentially unchanged study when compared to a prior echocardiogram report dated JAN 14. MMode/2D Measurements & Calculations RVDd: 2.7 cm LVIDd: 4.8 cm FS: 38.8 % Ao root diam: 2.7 cm IVSd: 1.2 cm LVIDs: 3.0 cm EDV(Teich): 108.8 ml Ao root area: 5.5 cm2 LVPWd: 1.1 cm ESV(Teich): 33.6 ml EF(Teich): 69.1 % Doppler Measurements & Calculations MV E max tamera: MV dec slope: Ao V2 max: LV V1 max P.8 cm/sec 237.8 cm/sec2 89.0 cm/sec 2.1 mmHg MV A max tamera: MV dec time: 0.21 secAo max P.2 mmHgLV V1 max: 60.1 cm/sec 73.0 cm/sec MV E/A: 0.81 PA V2 max: PI end-d tamera: TR max tamera: 51.5 cm/sec 106.5 cm/sec 177.6 cm/sec PA max P.1 mmHg TR max P.6 mmHg Left Ventricle Normal size cavity with borderline to very mild concentric left ventricular hypertrophy. Left ventricular systolic function is normal. The Ejection Fraction estimate is 60-65%. Doppler measurements suggest impaired left ventricular relaxation, which is associated with grade I/IV or mild diastolic dysfunction. Regional wall motion abnormalities cannot be excluded due to limited visualization. Right Ventricle The right ventricle is grossly normal size. The right ventricular systolic function is normal. Atria The right atrium is normal. The left atrial size is normal. Interarterial septum not well visualized and not well dopplered. Cannot comment on ASD/PFO presence. Mitral Valve The mitral valve is normal in structure and function. There is a trace amount of mitral regurgitation. Aortic Valve The aortic valve is trileaflet. There is no aortic valve stenosis. Tricuspid Valve The tricuspid is normal in structure and function. There is a trace amount of tricuspid regurgitation. Pulmonic Valve The pulmonic valve is not well visualized. There is a trace amount of pulmonic regurgitation. Effusions There is no pleural effusion. : DIMITRIS IYER, [place]
--- NOTE | 2020-08-13 18:06 | ER Document Report ---
Entered by PRABHA SHERMAN SCRIBE 08/13/20 1228 Acting as scribe for:DIMITRIS IYER MD ED General - General Chief Complaint: Numbness Stated Complaint: TINGLING LEFT SIDE, PAIN LEFT EYE Time Seen by Provider: 08/13/20 10:38 Primary Care Provider: CORNELIUS EMERSON MD [Primary Care Provider] - Follow up as needed Mode of Arrival: Ambulatory Information source: Patient, [facility] Records Notes: This 40 year old male patient presents to the emergency department today with increased left sided tingling and weakness. Patient states this began when he woke this morning and had a sharp headache behind his eyes. 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 Patient states he was admitted for a week when this happened with high blood pressure. Patient states he had remaining left sided tingling and weakness after last year with it increasing today. Denies any trouble swallowing, abdominal pain, or N/D. TRAVEL OUTSIDE OF THE [place] IN LAST 30 DAYS: No - Related Data Allergies/Adverse Reactions: No Known Allergies Allergy (Unverified 02/26/11 14:12) Past Medical History - General Information source: Patient, [facility] Records - Social History Smoking Status: Never Smoker Cigarette use (# per day): No Frequency of alcohol use: Occasional Family History: CAD, Hypertension - Past Medical History Cardiac Medical History: Reports: Hx Hypertension - Stopped taking medications about 5 years ago Pulmonary Medical History: Neurological Medical History: Reports: Other - Acute ischemic VBA brainstem str hilda - December 2018 GI Medical History: Musculoskeletal Medical History: Infectious Medical History: Past Surgical History: Reports: Hx Orthopedic Surgery - hernandez ACL surgery - Immunizations Hx Diphtheria, Pertussis, Tetanus Vaccination: Yes Review of Systems - Review of Systems Constitutional: No symptoms reported EENT: See HPI. denies: Difficulty swallowing Cardiovascular: No symptoms reported Respiratory: No symptoms reported Gastrointestinal: See HPI. denies: Abdominal pain, Diarrhea, Nausea Genitourinary: No symptoms reported Male Genitourinary: No symptoms reported Musculoskeletal: No symptoms reported Skin: No symptoms reported Hematologic/Lymphatic: No symptoms reported Neurological/Psychological: See HPI, Weakness - L, Headaches, Tingling - L -: Yes All other systems reviewed and negative Physical Exam - Vital signs Vitals: Temp Pulse Resp BP Pulse Ox 98.4 F 75 18 143/97 H 97 11/16/20 09:51 08/13/20 09:51 08/13/20 09:51 08/13/20 09:51 08/13/20 09:51 - General General appearance: Appears well, Alert - HEENT Head: Normocephalic, Atraumatic Eyes: Normal Pupils: PERRL Ears: Normal External canal: Normal Tympanic membrane: Normal Nasal: Normal Mouth/Lips: Normal Pharynx: Normal Neck: Supple Notes: Lateral gaze nystagmus bilaterally. No tenderness with palpation to the frontal and maxillary sinuses. - Respiratory Respiratory status: No respiratory distress Chest status: Nontender Breath sounds: Normal Chest palpation: Normal - Cardiovascular Rhythm: Regular Heart sounds: Normal auscultation Murmur: No - Abdominal Inspection: Normal Distension: No distension Bowel sounds: Normal Tenderness: Nontender - Extremities General upper extremity: Normal inspection, Normal ROM General lower extremity: Normal inspection, Normal ROM. No: Edema - Neurological Neuro grossly intact: Yes Cognition: Normal Orientation: AAOx4 [place] Coma Scale Eye Opening: Spontaneous [place] Coma Scale Verbal: Oriented [place] Coma Scale Motor: Obeys Commands [place] Coma Scale Total: 15 Speech: Normal Cranial nerves: Normal Cerebellar coordination: Normal Motor strength normal: RUE, LLE, RLE Additional motor exam normals: Dorsiflexion, Plantar flexion Sensory: Normal Notes: Normal cerebellar coordination with finger-nose and heel-navarro tests. Normal gag reflex. No pronator drift. 4/5 crane man strength to the LUE. Normal crane man strength of the RUE. Normal strength of the bilateral lower extremities with a straight leg raise. - Psychological Associated symptoms: Normal affect, Normal mood - Skin Skin Temperature: Warm Skin Moisture: Dry Skin Color: Normal Course - Re-evaluation Re-evalutation: 08/13/20 15:55 Patient is hemodynamically stable not showing any worsening neurological status at this time. Patient has left-sided weakness arm crane man strength worse than lower strength. Patient is 4 out of 5 on crane man strength on the left. Patient also noted to have nystagmus when doing lateral gaze. 08/13/20 18:03 Case discussed with the hospitalist admit team and based on the work-up that has been done today including CT scan of the head MRI of the brain MRA of the neck and the brain [place] and echocardiogram chest x-ray and observation over time in the ED disclose that the patient has not shown any worsening neurological condition at this time. Patient's blood pressure has remained stable and labs are within normal limits. With all negative work-up for any acute stroke or any evidence of impending stroke the thought of observation in the hospital was not necessary. Discussed this with patient and his and they are also in agreement that they will continue to take his medications as he is taking now including aspirin and return to the emergency room if there is any further problems. Plan is to follow-up with his primary care physician and is neurologist at [facility]. - Vital Signs Vital signs: Temp Pulse Resp BP Pulse Ox 98.4 F 75 14 144/103 H 99 08/13/20 09:51 08/13/20 09:51 08/13/20 16:01 08/13/20 16:00 08/13/20 16:01 08/13/20 15:55 Vital signs stable blood pressure is 143/97 slightly elevated. - Laboratory Result Diagrams: 08/13/20 11:06 08/13/20 11:06 Laboratory results interpreted by me: 08/13/20 08/13/20 08/13/20 11:06 11:06 11:06 APTT 23.3 L Total Bilirubin 1.5 H Urine Blood MODERATE H 08/13/20 15:56 08/13/20 11:06 08/13/20 11:06 MCV 91 fl (80-97) 08/13/20 11:06 MCH 32.2 pg (27.0-33.4) 08/13/20 11:06 MCHC 35.4 g/dL (32.0-36.0) 08/13/20 11:06 RDW 12.9 % (11.5-14.0) 08/13/20 11:06 Seg Neutrophils % 67.0 % (42-78) 08/13/20 11:06 Chloride 100 mmol/L (98-107) 08/13/20 11:06 Carbon Dioxide 29 mmol/L (22-30) 08/13/20 11:06 Anion Gap 11 (5-19) 08/13/20 11:06 Est GFR ( Amer) > 60 (>60) 08/13/20 11:06 Glucose 91 mg/dL (75-110) 08/13/20 11:06 Calcium 10.2 mg/dL (8.4-10.2) 08/13/20 11:06 Total Bilirubin 1.5 mg/dL (0.2-1.3) H 08/13/20 11:06 AST 28 U/L (17-59) 08/13/20 11:06 Alkaline Phosphatase 83 U/L (38-126) 08/13/20 11:06 Total Protein 7.8 g/dL (6.3-8.2) 08/13/20 11:06 Albumin 4.8 g/dL (3.5-5.0) 08/13/20 11:06 Urine Color YELLOW 08/13/20 11:06 Urine Appearance CLEAR 08/13/20 11:06 Urine pH 6.0 (5.0-9.0) 08/13/20 11:06 Ur Specific [place] 1.008 08/13/20 11:06 Urine Protein NEGATIVE mg/dL (NEGATIVE) 08/13/20 11:06 Urine Glucose (UA) NEGATIVE mg/dL (NEGATIVE) 08/13/20 11:06 Urine Ketones NEGATIVE mg/dL (NEGATIVE) 08/13/20 11:06 Urine Blood MODERATE (NEGATIVE) H 08/13/20 11:06 Urine Nitrite NEGATIVE (NEGATIVE) 08/13/20 11:06 Ur Leukocyte Esterase NEGATIVE (NEGATIVE) 08/13/20 11:06 Urine WBC (Auto) 0 /HPF 08/13/20 11:06 Urine RBC (Auto) 1 /HPF 08/13/20 11:06 Patient's labs essentially unremarkable patient is a 1 red blood cell per high- power field on urinalysis and mild elevation in bilirubin of 1.5 rest of his laboratories essentially within normal range. - Diagnostic Test Radiology reviewed: Image reviewed, Reports reviewed Radiology results interpreted by me: 08/13/20 15:[address] 08/13/20 10:41 IMPRESSION: 1. No acute intracranial abnormality. EVIDENCE OF ACUTE STROKE: NO. Head MRI 08/13/20 12:29 IMPRESSION: Small old lacunar infarction in the right side of the [place]. No acute findings in the brain. EVIDENCE OF ACUTE STROKE: NO. Neck MRA 08/13/20 12:30 IMPRESSION: NO SIGNIFICANT STENOSIS. Brain MRI with MRA 08/13/20 12:31 IMPRESSION: NORMAL MRA OF THE [place]. Patient's head CT shows no acute intracranial abnormality and no stroke. Patient's head MRI shows a small old lacunar infarct on the right side of the [place] no acute findings in the brain. Neck MRA shows no significant stenosis. And brain MRI with MRA shows normal MRA of the [place]. - EKG Interpretation by Me Additional EKG results interpreted by me: 08/13/20 15:59 Twelve-lead EKG shows normal sinus rhythm rate of 70 normal intervals with NJ interval Q RS interval and QT interval. Patient has a normal axis no acute ST-T wave changes and no evidence for STEMI. 08/13/20 17:59 Echocardiogram with a bubble study read by Dr. Williamson who reports normal EF, bubble study negative, and no change in echocardiogram from 2019. Discharge - Discharge Clinical Impression: History of CVA with residual deficit, Paresthesias Condition: Stable Disposition: HOME, SELF-CARE Additional Instructions: Continue your same medications that you have been taken seems to be very well in controlling your blood pressure also continue your aspirin as you also do on a daily basis. Follow-up with your neurologist and your primary care physician. Also if there is any worsening neurological condition please return to the emergency department as soon as possible. Referrals: CORNELIUS EMERSON MD [Primary Care Provider] - Follow up as needed ED NIH Stroke Scale - NIH Stroke Scale *: 1. NIH scale should be completed with appropriate accompanying assessment tools. *: 2. The NIH should reflect what the patient is capable of doing and should not be coached by the clinician. 1a. Level of Consciousness: 0=Alert;keenly responsive -: 1=Drowsy -: 2=Obtunded -: 3=Coma/unresponsive or reflex to noxious stimuli. 1a. Responses: 0 1b. Orientation Questions: a. What month is it? -: b. How old are you? -: 0=Answers both questions correctly. -: 1=Answers one question correctly or patient is intubated or has orotracheal trauma. -: 2=Answers neither question correctly. 1b. Responses: 0 1c. Response to commands: a. Open and close eyes? -: b. Senior Mortgage Underwriter and release hand? -: Credit is given despite weakness. Demonstration of task is permitted. Substitute command if hands cannot be used. -: 0=Performs both tasks correctly -: 1=Performs one task correctly -: 2=Performs neither task correctly 1c. Responses: 0 2. Gaze: Establish eye contact and instruct patient to "Follow my finger" -: 0=Normal -: 1=Partial gaze palsy. Gaze is abnormal in one or both eyes, but where forced deviation or total gaze paresis is not present. -: 2=Forced deviation or total gaze paresis. 2. Responses: 0 - 2 beat nystagmus noted in either direction laterally. 3. Visual Jones: Sees fingers in all four quadrants. -: 0=No visual loss. -: 1=Partial hemianopsia. -: 2=Complete hemianopsia. -: 3=Bilateral hemianopsia (including Cortical blindness) 3. Responses: 0 4. Facial Movement: Instruct patient to: -: a. Show me your teeth -: b. Raise your eyebrows -: c. Close your eyes -: d. Smile -: 0=Normal symmetrical movement -: 1=Minor paralysis (flattened nasolabial fold, asymmetry on smiling). -: 2=Partial paralysis (total or near total paralysis of lower face). -: 3=Complete paralysis of upper and lower face 4. Responses: 0 5. Motor functions (left arm): Alternate sides and extend each arm with palms down (90 degrees if sitting or 45 degrees for supine). -: 0=No drift;limb holds for full 10 seconds. -: 1=Drift; limb holds but drifts down before full 10 seconds, but does not hit bed. -: 2=Some effort against gravity; limb cannot get to or maintain position. -: 3=No effort against gravity; limb falls. -: 4=No movement. -: UN=Amputation, joint fusion, explain in comments. 5. Responses (left arm): 0 5. Motor Functions (right arm): Alternate sides and extend each arm with palms down (90 degrees if sitting or 45 degrees for supine). -: 0=No drift;limb holds for full 10 seconds. -: 1=Drift; limb holds but drifts down before full 10 seconds, but does not hit bed. -: 2=Some effort against gravity; limb cannot get to or maintain position. -: 3=No effort against gravity; limb falls. -: 4=No movement. -: UN=Amputation, joint fusion, explain in comments. 5. Responses (right arm): 0 6. Motor Functions (left leg): With patient lying supine, alternate sides and extend each leg (30 degrees always while supine). -: 0=No drift, leg holds position for full 5 seconds -: 1=Drift; leg falls before full 5 seconds but does not hit bed. -: 2=Some effort against gravity, leg falls to bed but some effort against gravity. -: 3=No effort against gravity, leg falls to bed immediately. -: 4=No movement. -: UN=Amputation, joint fusion; explain in comments. 6. Responses (left leg): 0 6. Motor Functions (right leg): With patient lying supine, alternate sides and extend each leg (30 degrees always while supine). -: 0=No drift, leg holds position for full 5 seconds -: 1=Drift; leg falls before full 5 seconds but does not hit bed. -: 2=Some effort against gravity, leg falls to bed but some effort against gravity. -: 3=No effort against gravity, leg falls to bed immediately. -: 4=No movement. -: UN=Amputation, joint fusion; explain in comments. 6. Responses (right leg): 0 7. Limb Ataxia: With eyes open instruct patient to: -: a. "Touch your finger to your nose". -: b. "Touch your heel to your navarro" -: 0=Absent -: 1=Present in one limb. -: 2=Present in two limbs. -: UN=Amputation or joint fusion; explain in comments. 7. Responses: 0 8. Sensory: Test sensation using pinprick or noxious stimuli. Test as many body parts as possible. -: 0=Normal;no sensory loss -: 1=Mile to moderate sensory loss (patient feels pin prick but is less sharp on affected side). -: 2=Severe or total sensory loss. 8. Responses: 0 9. Best Language: Instruct patient to: -: a. "Describe what you see in this picture." -: b. "Name the items in this picture." -: c. "Read these sentences." -: 0=No aphasia, normal -: 1=Mild to moderate aphasia. -: 2=Severe aphasia -: 3=Mute, global aphasia, no usable speech or auditory comprehension. 9. Responses: 0 10. Articulation, Dysarthia: Instruct patient to: -: "Read these words" or "Repeat these words" -: 0=Normal -: 1=Mild to moderate; patient may slur some words but can be understood without difficulty. -: 2=Severe; patients speech so slurred as to be unintelligible in the absence of dysphasia. -: UN=Intubated or other physical barrier, explain in comments. 10. Responses: 0 11. Extinction or inattention: 0=No abnormality -: 1= Visual, tactile, auditory, spatial, or personal inattention or extinction to bilateral simulation in one or the sensory modalities. -: 2=Profound bret-inattention or bret-inattention to more than one modality; does not recognize own hand. 11. Responses: 0 - Senior Mortgage Underwriter strength on the left 4 out of 5. Total Score: 0 I personally performed the services described in the documentation, reviewed and edited the documentation which was dictated to the scribe in my presence, and it accurately records my words and actions.
[2020-08-13 18:11] VITALS: BP 151/90
== END 2020-08-13 18:05 | disposition home or self-care (01) ==
LOC: ER 09:38
DX: I69.334 Monoplegia of upper limb following cerebral infarction affecting left non-dominant side (principal); I69.398 Other sequelae of cerebral infarction; R20.2 Paresthesia of skin; R20.0 Anesthesia of skin; R51.9 Headache, unspecified; H55.00 Unspecified nystagmus; R79.89 Other specified abnormal findings of blood chemistry; I10 Essential (primary) hypertension; Z79.82 Long term (current) use of aspirin
CPT/HCPCS: 36415; 70450; 70544; 70547; 70551; 71045; 80053; 81001; 85025; 85610; 85730; 93005; 93010; 93306; 99285